=== PATIENT | female | born 1990 | race Caucasian/White ===

== ENCOUNTER 2020-03-15 07:06 | Outpatient (NON) | payer OTHER, SELFPAY ==
[2020-03-16 01:31] LABS: SARS-CoV-2 RNA PCR Negative
== END 2020-03-15 07:07 ==
LOC: ANHCOVIDDT 07:06
PROVIDERS: PCP Nurse Practitioner Family; Visit Provider Nurse Practitioner Family
DX: Z20.828 Contact with and (suspected) exposure to other viral communicable diseases (principal); R05 Cough; R52 Pain, unspecified
CPT/HCPCS: 87635; C9803; U0003

== ENCOUNTER 2020-04-25 12:35 | Emergency (ER) | payer OTHER, SELFPAY ==
[2020-04-25 12:49] VITALS: BP 156/64; PULSE 91; RESP 20; TEMP 36.9; O2SAT 98
--- NOTE | 2020-04-25 13:13 | ED.EXTPRO ---
HPI - Extremity Problem General Chief complaint: Extremity Problem,Nontraumatic Stated complaint: puffiness on left arm Source: patient Mode of arrival: ambulatory Limitations: no limitations History of Present Illness HPI Narrative: Patient is a 29-year-old female who presents complaining of left forearm pain. Patient reports having tattoo on Wednesday. Reports increased redness and warmth x2 days. Reports increased pain today. Denies taking [id number] medications for pain. MD Complaint: extremity pain Related Data Allergies Allergy/AdvReac Type Severity Reaction Status Date / Time carbamazepine Allergy Unknown Verified 11/23/16 10:39 Review of Systems Review of Systems: Narrative: CONSTITUTIONAL: Denies fever, chills, or sweats. EYES: Denies visual changes, redness, or discharge. ENT: Denies rhinorrhea, congestion, sore throat, or otalgia. CARDIOVASCULAR: Denies chest pain, palpitations, or edema. RESPIRATORY: Denies cough or dyspnea. GASTROINTESTINAL: Denies abdominal pain, nausea, vomiting, or diarrhea. GENITOURINARY: Denies dysuria or hematuria. SKIN: Warmth, redness and pain to left forearm MUSCULOSKELETAL: Denies back pain, joint pain, or myalgia. NEUROLOGIC: Denies headache, numbness, dizziness, or weakness. PSYCHIATRIC: Denies anxiety or depression. PMFSH Past Medical History Medical History Collar bone fracture Depression Retained placenta Surgical History Surgical History No significant past surgical history Family History Family History Other No significant family history Social History Social History Smoking status: Current every day smoker Alcohol intake: current Alcohol use details: socially Substance use: never Gender identity (if verbalized by the patient): Female Exam Narrative: Exam Narrative: GENERAL: Well-appearing, well-nourished, and in no acute distress. HEAD: Normocephalic, atraumatic. EYES: No redness or drainage. ENT: Mucous membranes pink and moist. CHEST: No respiratory distress. EXTREMITIES: Normal range of motion. No edema. SKIN: Erythema, warmth and mild edema to left forearm. NEURO: No focal deficits. Alert and oriented x3. Gait steady. PSYCH: Normal affect. No signs of depression or anxiety. Course Vital Signs Vital signs: Vital Signs Temperature 36.9 C 04/25/20 12:49 Pulse Rate 91 04/25/20 12:49 Respiratory Rate 20 04/25/20 12:49 Blood Pressure 156/64 H 04/25/20 12:49 Pulse Oximetry 98 04/25/20 12:49 Temperature 36.9 C 04/25/20 12:49 Pulse Rate 91 04/25/20 12:49 Respiratory Rate 04/25/20 12:49 Blood Pressure 156/64 H 04/25/20 12:49 Pulse Oximetry 98 04/25/20 12:49 Reviewed. Patient has been instructed to follow-up with her PCP regarding her blood pressure. MDM - Extremity (Nontraumatic) MDM Narrative Medical decision making narrative: Patient appears to have cellulitis to left forearm where tattoo was recently placed. Discussed with patient starting antibiotics at this time. And further signs and symptoms to look for. Patient is stable for discharge to home with outpatient follow-up as needed. Differential Diagnosis Differential diagnosis: Likely cellulitis, superficial thrombophlebitis and deep venous thrombosis of upper extremity Medical Records Attestation: I reviewed the patient's medical records. Critical Care Time Critical Care Time Critical Care Time: No Discharge Plan Discharge Clinical Impression: Cellulitis Qualifiers: Site of cellulitis: extremity Site of cellulitis of extremity: upper extremity Laterality: left Qualified Code(s): L03.114 - Cellulitis of left upper limb Patient Disposition: Home, Self-Care Condition: Stable Instructions: Antibiotic F
== END 2020-04-25 13:16 | disposition home or self-care (01) ==
PROVIDERS: Emergency Provider Nurse Practitioner; PCP Nurse Practitioner Family
DX: L03.114 Cellulitis of left upper limb (principal); F17.210 Nicotine dependence, cigarettes, uncomplicated
CPT/HCPCS: 99213; G0463

== ENCOUNTER 2020-06-05 10:30 | Outpatient (CLI) | payer OTHER, SELFPAY ==
[2020-06-05 11:12] LABS: Beta HCG Quantitative < 2.39 mIU/ML
== END 2020-06-05 10:31 | disposition home or self-care (01) ==
PROVIDERS: PCP Nurse Practitioner Family; Visit Provider Nurse Practitioner Obstetrics & Gynecology
DX: Z30.9 Encounter for contraceptive management, unspecified (principal)
CPT/HCPCS: 36415; 84702

== ENCOUNTER 2023-02-23 12:38 | Emergency (ER) | payer OTHER, SELFPAY ==
--- NOTE | ~2023-02-23 | CT_ITS ---
EXAMINATION: CT lumbar spine wo con DATE: 02/23/2023 13:45 INDICATION: Low back pain. TECHNIQUE: Computed tomography (CT) of the lumbar spine was performed without intravenous contrast. T he dose Willie The dose-length product was 1471.55 mGy-cm. COMPARISON: None FINDINGS: Minimal thoracolumbar dextrocurvature. Vertebral body heights are normal. No fractures. Small Schmorl 's node with surrounding sclerotic endplate changes along the inferior endplate of L5. There is mild disc height loss at L3-L4 and L5-S1. 3 mm nonobstructing stone at a lower pole calyx of the right kid justa. T-shaped IUD in expected position. Small amount of likely physiologic free fluid in the cul-de-s ac. Visualized paravertebral soft tissues are unremarkable. The following disc levels are specificall y discussed: T11-T12: The disc does not extend beyond the endplate margin. There is mild bilateral facet joint ost eoarthritis. There is no neural foraminal stenosis. There is no central canal stenosis. T12-L1: The disc does not extend beyond the endplate margin. There is mild bilateral facet joint oste oarthritis. There is no neural foraminal stenosis. There is no central canal stenosis. L1-L2: The disc does not extend beyond the endplate margin. There is mild bilateral facet joint osteo arthritis. There is no neural foraminal stenosis. There is no central canal stenosis. L2-L3: Disc is mildly bulging. There is bilateral facet joint osteoarthritis. There is no neural fora michelle stenosis. There is minimal central canal stenosis. L3-L4: Disc is bulging. There is mild bilateral facet joint osteoarthritis. There is mild right and m inimal left neural foraminal stenosis. There is mild central canal stenosis. L4-L5: Disc is bulging. There is mild left and and mild to moderate right facet joint osteoarthritis. There is mild bilateral neural foraminal stenosis. There is mild central canal stenosis. L5-S1: Disc is bulging. There is mild bilateral facet joint osteoarthritis. There is mild bilateral n eural foraminal stenosis. There is no central canal stenosis. IMPRESSION: 1. Mild lumbar spondylosis. 2. 3 mm nonobstructing right renal stone. 3. IUD in expected position. Reviewed, dictated and finalized at location A.
[2023-02-23 12:58] VITALS: PULSE 129; RESP 16; TEMP 36.5; O2SAT 99
[2023-02-23] MEDS: KETOROLAC 30 MG/ML VIAL (*BKC) IM (13:04)
--- NOTE | 2023-02-23 13:16 | ED.GENADULT ---
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 The following day she had increased pain and went to an OSH ED where they gave her Toradol and Flexeril. She continue to have pain and went to her PCP who started her on Nroco and Prednisone, she states that her pain has started to improve and then yesterday pain started to get much worse. She states that the pain is now bilateral lower back and midline No cervical/thoracic spinal tenderness wtih palpation Lumbar spinal tenderness with palpation and bilateral asepcts No saddle paraesthesia No loss of bowel or bladder Related Data Allergies Allergy/AdvReac Type Severity Reaction Status Date / Time carbamazepine Allergy Unknown Unknown Verified 02/19/23 08:22 Review of Systems Review of Systems: CONSTITUTIONAL: Denies fever, chills, or sweats. EYES: Denies visual changes, redness, or discharge. ENT: Denies rhinorrhea, congestion, sore throat, or otalgia. CARDIOVASCULAR: Denies chest pain, palpitations, or edema. RESPIRATORY: Denies cough or dyspnea. GASTROINTESTINAL: Denies abdominal pain, nausea, vomiting, or diarrhea. GENITOURINARY: Denies dysuria or hematuria. SKIN: Denies rash or itching. MUSCULOSKELETAL: Reports severe back pain midline and bilateral, NEUROLOGIC: Denies headache, numbness, dizziness, or weakness. PSYCHIATRIC: Denies anxiety or depression. [facility] Past Medical History Medical History Chronic low back pain Collar bone fracture COVID-19 Depression Lipoma of back Retained placenta URI (upper respiratory infection) Vitamin B12 deficiency Vitamin D deficiency Surgical History Surgical History History of dilatation and curettage 2010 No significant past surgical history Family History Family History Other No significant family history Social History Social History Smoking packs per day: 0.5 Smoking cigarettes per day: 10.0 Years smoked: 15 Smoking pack-years: 7.50 Smoking status: Current every day smoker Tobacco type: cigarettes Alcohol intake: never Substance use: never Substance use type: does not use Lack of Transportation: No Lack of Food: Never True Current Housing: I Have Housing Concerned About Future Housing: No Difficulty Paying Gas/Electric Bills: No Difficulty Paying for Meds: No Currently Unemployed: No Education: Trade/Vocational Certificate Difficulty w/ Childcare or Family Care: No Living arrangements: with family Occupation/Education: occupation Gender identity (if verbalized by the patient): Female Sexual Orientation (if Verbalized by the Patient): Straight or Heterosexual Exam Narrative: GENERAL: Well-appearing, well-nourished, and in no acute distress. HEAD: Normocephalic, atraumatic. EYES: PERRLA and EOMI. ENT: Nares clear, no rhinorrhea or epistaxis. Mucous membranes moist. Oropharynx without tonsillar hypertrophy exudate or other lesions. Bilateral TMs pearly [place] nonbulging NECK: Supple. No adenopathy or masses. No carotid bruits or JVD CHEST: Clear to auscultation. No respiratory distress. No wheezes rales or rhonchi HEART: Regular rate and rhythm. No murmur heard. Normal peripheral pulses. ABDOMEN: Soft, nontender, nondistended, normal active bowel sounds. EXTREMITIES: Normal range of motion. No edema. SKIN: Warm, dry, no rash. NEURO: No focal deficits. Alert and oriented x3. PSYCH: Normal mood and affect. Course Vital Signs Vital signs:
[2023-02-23 13:25] LABS: Appearance Urine Clear (Clear); Bilirubin Urine Negative (Negative); Blood Urine Negative (Negative); Color Urine Yellow (Yellow); Glucose Urine UA Negative (Negative); Ketones Urine Negative (Negative); Leukocyte Esterase Ur Negative LEU/UL (Negative); Nitrate Urine Negative (Negative); Protein Urine Negative (Negative); Specific Grav Ur 1.013 (1.001-1.035); Urobilinogen Urine 0.2 mg/dL (<2.0); pH Urine 7.5 (5.0-9.0)
[2023-02-23 13:46] LABS: Add Urine Microscopic? NO
[2023-02-23] MEDS: LIDOCAINE 5% PATCH 1 PATCH TRANSDERM (14:54)
[2023-02-23] MEDS: diazePAM (*CRX) 5 MG TABLET PO (14:54)
[2023-02-23] MEDS: HYDROcodone/acetaminophen (*CRX) 5-325 MG TABLET 1 TAB PO (14:54)
[2023-02-23 16:33] VITALS: BP 131/72; PULSE 72; RESP 18; O2SAT 97
== END 2023-02-23 17:10 | disposition home or self-care (01) ==
PROVIDERS: Emergency Provider Nurse Practitioner Family; PCP Family Medicine
DX: M54.50 Low back pain, unspecified (principal); E53.8 Deficiency of other specified B group vitamins; E55.9 Vitamin D deficiency, unspecified; F32.A Depression, unspecified; F17.210 Nicotine dependence, cigarettes, uncomplicated; Z97.5 Presence of (intrauterine) contraceptive device; Z86.16 Personal history of COVID-19; N20.0 Calculus of kidney; M47.816 Spondylosis without myelopathy or radiculopathy, lumbar region
CPT/HCPCS: 72131; 81003; 81025; 96372; 99284; A9270; J1885

== ENCOUNTER → 2023-03-10 11:15 | Outpatient (CLI) | payer OTHER, SELFPAY ==
--- NOTE | ~2023-03-10 | MR_ITS ---
EXAMINATION: MR lumbar spine wo con DATE: 03/10/2023 11:54 INDICATION: Low back pain with radiculopathy. TECHNIQUE: Magnetic resonance imaging (MRI) of the lumbar spine was performed without intravenous con trast. Sequences included sagittal T2-weighted FSE, sagittal T2-weighted FS FSE, sagittal T1-weighted FSE, and axial T2-weighted FSE. COMPARISON: CT lumbar spine 02/23/2023 FINDINGS: Bone alignment is normal. Vertebral body heights are normal. There is mildly decreased disc height at L2-L3 and L5-S1. The distal spinal cord signal intensity is normal. The conus medullaris i s at L1. The following disc levels are specifically discussed: L1-L2: The disc does not extend beyond the endplate margin. There is mild left facet joint osteoarthr itis. There is no neural foraminal stenosis. There is no central canal stenosis. L2-L3: The disc does not extend beyond the endplate margin. There is mild bilateral facet joint osteo arthritis. There is no neural foraminal stenosis. There is no central canal stenosis. L3-L4: The disc is bulging and has an annular fissure. There is mild bilateral facet joint osteoarthr itis. There is mild left neural foraminal stenosis. There is no central canal stenosis. L4-L5: The disc is bulging. There is moderate severe left facet joint osteoarthritis. There is mild b ilateral neural foraminal stenosis. There is mild central canal stenosis. L5-S1: The disc is bulging and has an annular fissure. There is mild bilateral facet joint osteoarthr itis. There is mild bilateral neural foraminal stenosis. There is mild central canal stenosis. IMPRESSION: 1. Mild spondylosis. Reviewed, dictated and finalized at location E. IMPRESSION: 1. Mild spondylosis.
== END ==
PROVIDERS: PCP Physician Assistant Medical; Visit Provider Physician Assistant Medical
DX: M43.06 Spondylolysis, lumbar region (principal); M47.817 Spondylosis without myelopathy or radiculopathy, lumbosacral region
CPT/HCPCS: 72148

== ENCOUNTER 2023-05-31 10:30 | Outpatient (RCR) | payer OTHER, SELFPAY ==
--- NOTE | 2023-03-03 16:37 | PTOPEVAL1 ---
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 By the time got in the care to go home her pain had worsened, went straight to the E.R. Was getting better on Prednisone and a couple days after completion pain greatly increased and went to E.R. per primary physician and got CT. Was given a Toradol shot and a new prescription for flexeril and lidocaine patches. Was able to file worker's compensation with hospital. Reported Pain Level Pain Score 8: Self Report Additional Pain Score Comments On Prednisone would go down to 4/10 Assessment PT Clinical Summary Pt presents with significant back pain she reports after work related injury while lifting a patient . She has had two rounds of prednisone which seemed to help but pain returned. She has had a CT scan and is scheduled for an MRI. CT scan shows multiple levels of stenosis, bulging discs, and facet issues. Pt has severely reduced lumbar ROM, multiple areas of tenderness and tone, significant difficulty with gait and mobility, and abnormal standing alignment. Pt will greatly benefit from physical therapy in order to address deficits and return to PLOF. Plan of Care Interventions Aquatic Therapy,Electrical Stimulation,Gait Training,Hot Pack/Cold Pack,Manual Therapy, Mechanical Traction,Neuro Re-education,Therapeutic Activities,Therapeutic Exercise,Ultrasound PT Services Indicated Yes Treatment Frequency and 1-2x weekly x 8 weeks Duration These treatments will address the objective and functional deficits as defined above. The patient will be advanced safely and appropriately in order for the patient to progress towards his/her prior level of function. Additional exercises will be introduced and as well as a comprehensive home exercise program upon discharge, if needed, ?to ensure carryover of functional gains achieved in the clinic. This treatment plan has been reviewed and agreement upon by the patient.
--- NOTE | 2023-03-03 16:38 | OPREHPOC ---
Outpatient Therapy Plan of Care This is a Multidisciplinary Plan of Care that may contain components documented by all disciplines (PT, OT, and ST.) PT Goal 1 Goal Pt will be independent in HEP Pt will verbalize understanding of diagnosis and prognosis Target Visit 8 PT Problem 2 PT Problem #2 Pain PT Goal 1 Goal Pt will report greatest pain level at 5/10 or less to improve ADLs Target Visit 16 PT Goal 2 Goal Pt will report resolution of pain to return to PLOF Target Visit 24 PT Problem 3 PT Problem #3 Impaired Range of Motion PT Goal 1 Goal Pt will demo lumbar AROM of 50% in all tested planes Target Visit 10 PT Goal 2 Goal Pt will demo full AROM in all tested planes Target Visit 20 PT Problem 4 PT Problem #4 Impaired Functional Mobil PT Goal 1 Goal Pt will demo ability to perform log rolling onto/ off of mat table without assist Target Visit 10 PT Goal 2 Goal Pt will demo normalized mobility with minimal to nor guarding Target Visit 24
--- NOTE | 2023-04-02 11:31 | PTOPPROG ---
Assessment and note entered by Iva Dixon, PT Assessment Status Progress Report Diagnosis Strain/sprain lumbar tissues Therapy conditions lumbosacral pain with radiculopathy Subjective Information Been taking prescribed meloxicam. Has had some minimal improvement in pain with this. Has her back brace but caused increased pain with wearing it. 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 Has a sit to stand desk and is able to walk around often. 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 Still cannot lay in bed, sleeping in a recliner. Pain javed legs and buttock are slightly worse Assessment PT Clinical Summary Pt has been attending therapy consistently for her low back pain and radicular symptoms. Pt reports feeling 15-20% improved as she is better able to walk but her pain continues to be severe and limiting in her activities. Sacral and pelvic stabilization today demo's immediate and significant relief and pt shows possible leg length discrepancy. She continues to be unable to sleep in her bed. Has returned to one of her employment positions which has no lifting, allows change in position as needed with a sit<>stand desk. 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 She will be initiating aquatic therapy next week to attempt strengthening and pain reduction in a decreased weight bearing environment. Pt will benefit from cont therapy to attempt to improve deficits and pain. If no improvement by next progress report, will likely suggest return to provider for referral to more aggressive intervention. Plan of Care Interventions Aquatic Therapy,Electrical Stimulation,Gait Training,Hot Pack/Cold Pack,Manual Therapy, Mechanical Traction,Neuro Re-education,Therapeutic Activities,Therapeutic Exercise,Ultrasound PT Services Indicated Yes Treatment Frequency and 1-2x weekly x 4 weeks Duration These treatments will address the objective and functional deficits as defined above. The patient will be advanced safely and appropriately in order for the patient to progress towards his/her prior level of function. Additional exercises will be introduced and as well as a comprehensive home exercise program upo
--- NOTE | 2023-04-20 11:59 | PCPTNOTE ---
pt rescheduled todays appt for tomorrow.
--- NOTE | 2023-05-13 16:13 | PTOPPROG ---
Assessment and note entered by Iva Dixon, PT Assessment Status Reevaluation Diagnosis Strain/sprain lumbar tissues, pain in lumbar spine, Oth. Abnormalities of gait and mobility Subjective Information Pt reports is now able to sleep in bed. States is extremely sore when gets up but after gets moving this gets better. Is no longer taking Meloxicam, is done with this prescription. Takes Ibuprofen 800-1000mg, some days this is all she has to take. Some days will take tylenol. Is still achy but no anywhere what it was Is still having pain into the legs and cramps in left calf randomly. Hasn't returned ot [employer]PER[employer] work, but 40 hour work week with a sit<>stand desk and this is going ok Self-perceived improvement 70-75% overall. Still has difficulty bending at the waist and lifting anything. Twisting is also problematic Still uses the lumbosacral orthosis and tihs is helpful Does report lower pain levels for longer periods Assessment PT Clinical Summary Pt presents for reevaluation after aquatic therapy . Presentation shows phenomenal progress in her mobility and ability to tolerate changes in position as well as testing procedures today. While she still has pain that increases to severe levels, she reports she has more time at lower pain levels than previously. She is now able to sleep in her own bed as well which she had been sleeping in her recliner due to pain. 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 Today she reports feeling 70-75% better overall but continues to demo multiple areas of deficit including lumbar ROM, core and lumbopelvic stability, possible pelvic and sacral obliquities, multiple areas of tone and tenderness through the lumbar and gluteals. Pt will benefit from continued therapy to progress from aquatic to land based therapies while still addressing lumbar decompression, increasing strength and stability, as well as alignment in order to improve pain and return to her normal function with minimal pain. Plan of Care Interventions Aquatic Therapy,Electrical Stimulation,Gait Training,Hot Pack/Cold Pack,Manual Therapy, [facility]
--- NOTE | 2023-05-13 16:15 | OPREHPOC ---
Outpatient Therapy Plan of Care This is a Multidisciplinary Plan of Care that may contain components documented by all disciplines (PT, OT, and ST.) PT Goal 1 Goal Pt will be independent in HEP Pt will verbalize understanding of diagnosis and prognosis Target Visit 8 Progress Met PT Problem 2 PT Problem #2 Pain PT Goal 1 Goal Pt will report greatest pain level at 5/10 or less to improve ADLs Target Visit 16 Progress Partially Met Comment Pt reports increased time with lower intensity pain though will still have moments of 10/10 pain PT Goal 2 Goal Pt will report resolution of pain to return to PLOF Target Visit 24 PT Problem 3 PT Problem #3 Impaired Range of Motion PT Goal 1 Goal Pt will demo lumbar AROM of 50% in all tested planes Target Visit 10 Progress Partially Met Comment Pt demo's improved lumbar flexion with TRAM activation today PT Goal 2 Goal Pt will demo full AROM in all tested planes Target Visit 20 Progress Not Met PT Problem 4 PT Problem #4 Impaired Functional Mobil PT Goal 1 Goal Pt will demo ability to perform log rolling onto/ off of mat table without assist Target Visit 10 Progress Met PT Goal 2 Goal Pt will demo normalized mobility with minimal to nor guarding Target Visit 24 Progress Partially Met Comment Pt demo's appropriate gait today without guarding
--- NOTE | 2023-05-25 15:20 | PCPTNOTE ---
Pt no showed visit today.
--- NOTE | 2023-05-27 13:20 | PCPTNOTE ---
Pt NS visit again today. Called and left a message with reminders of her next 2 visits coming up.
--- NOTE | 2023-06-02 15:49 | PCPTNOTE ---
This treatment is being continued on visit number [id number]. Please see documentation on both accounts to view progress. Completed interventions, outcomes, and problems have been marked as Inactive to facilitate the copying of the Care plan routine for recurring accounts.
== END 2023-06-01 23:59 | disposition home or self-care (01) ==
LOC: ANHPT 10:30
PROVIDERS: PCP Family Medicine; Visit Provider Physician Assistant Medical
DX: S39.012D Strain of muscle, fascia and tendon of lower back, subsequent encounter (principal)
CPT/HCPCS: 97014; 97110; 97113; 97140; 97161; 97162; 97530; 97750; G0283

== ENCOUNTER 2023-06-11 09:23 | Outpatient (RCR) | payer OTHER, SELFPAY ==
--- NOTE | 2023-06-02 15:48 | PCPTNOTE ---
The treatment documented on this account is a continuation of the treatment documented on visit number [id number]. Please see documentation on both accounts to view progress. The Plan of Care has been transitioned and updated within the new V#. I have addressed and agree with the discipline specific Problems, Interventions, and Goals for the current certification period. Completed interventions, outcomes, and problems have been marked as Inactive to facilitate the copying of the Care plan routine for recurring accounts.
--- NOTE | 2023-06-11 16:53 | PTOPPROG ---
Assessment and note entered by Iva Dixon, PT Assessment Status Progress Diagnosis Strain/sprain lumbar tissues pain in lumbar spine, oth. abnormalities of gait and mobility Subjective Information Pt reports is still accurate from last session. States had a nerve block done by Dr. Thomas 06/07/23 and this went terrible . Was painful during procedure, and when would go to bend forward would have sharp stabbing pain in back. Had dry needling done at last therapy appointment. Was sore with this but after that subsided didn't really see any difference Pt reports was able to bend slightly better with knowledge after last appointment about abdominal bracing Is still using her low back brace especially at work with her sit<>stand desk, has not returned to [employer] work Reports issued a week of therapy and could tell had missed therapy. Reports intense 9/10 is less often, mostly with first waking. 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 She reports she missed a couple treatments at the beginning of this last round due to family emergency and noted increased pain without therapy. She does demo increased LE strength with resistance testing today as well as improvement in symptoms with lumbar traction. She has also been able to initiate dry needling with PT facility. Pt has yet to meet her goals, ad could continue to benefit from therapy to improve deficits so as to return her to her PLOF. Plan of Care Interventions Aquatic Therapy,Electrical Stimulation,Gait Training,Hot Pack/Cold Pack,Manual Therapy, Mechanical Traction,Neuro Re-education,Patient/ Caregiver Educati,Therapeutic Activities, Therapeutic Exercise,Self-Care/Home Management, Ultrasound Other Interventions dry needling PT Services Indicated Yes Treatment Frequency and 1-2x weekly x 10 visits Duration These treatments will address the objective and functional deficits as defined above. The patient will be advanced safely and appropriately in order for the patient to progress towards his/her prior level of function. Additional exercises will be introduced and as well as a comprehensive home exercise program upon discharge, if needed, ?to ensure carryover of functional gains achieved in
--- NOTE | 2023-08-13 09:20 | PCPTNOTE ---
Admitting Provider: Attending Provider: Cindy Verma PA-C Patient:Domonique Benton Date of :1990 Patient has not returned for any further treatments since 06/11/2023, therefore she will be discharged at this time. 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 The goals have been partially met. Thank you for referring this patient to [facility]. Please review, sign, date and return this discharge summary STEFANIE. I have been updated about the patient's current status and I agree with discharge from the above service at this time. Referring Physician Date
== END 2023-08-13 11:55 | disposition home or self-care (01) ==
LOC: ANHHIPT 09:23
PROVIDERS: PCP Physician Assistant Medical; Visit Provider Physician Assistant Medical
DX: S39.012D Strain of muscle, fascia and tendon of lower back, subsequent encounter (principal)
CPT/HCPCS: 97110; 97113; 97750

== ENCOUNTER 2023-06-29 07:52 | Day surgery (SDC) | payer OTHER, SELFPAY ==
[2023-06-18 10:31] VITALS: BMI 45.2
--- NOTE | ~2023-06-29 | XR_ITS ---
EXAMINATION: XR fluoroscopy no charge INDICATION: Bilateral sacroiliac joint injection TECHNIQUE: 22 intraoperative fluoroscopic images are submitted for review. Total fluoroscopic time wa s 14.6 seconds. COMPARISON: None available FINDINGS: Fluoroscopic images demonstrate needles in the bilateral sacroiliac joints. Please refer to procedure note for full details. IMPRESSION: 1. Please refer to procedure note for full details. Reviewed, dictated and finalized at location L. 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
--- NOTE | 2023-06-29 06:29 | WPDHPUPDATE1 ---
History and Physical Update Update Date/Time: 06/29/23 06:29 History and Physical has been reviewed, including an updated exam of the patient. There are NO changes in the patient's condition. Risks, benefits, and alternatives have been discussed and questions answered. Patient agrees to proceed with procedure.
--- NOTE | 2023-06-29 06:31 | W.PM.PROC2 ---
Procedure Note - Detailed Date of Procedure 06/29/23 Pre-op Diagnosis Sacroiliitis, chronic low back pain Post-op Diagnosis Same Procedure Performed bilateral intra-articular sacroiliac joint steroid injections under fluoroscopic guidance with contrast control. Surgeon Willy Thomas MD Anesthesia Local Description of Procedure INFORMED CONSENT: Risks, benefits and alternatives to the procedure were discussed in detail with the patient who expressed explicit understanding and consent to proceed. Patient was informed verbally and in written form regarding the risks associated with the procedure including the low risk of serious infection, bleeding/bruising, allergic reaction, nerve or organ injury, paralysis, procedural site pain or discomfort, worsening pain and/or mobility, failure to treat and/or disfigurement. The patient expressed explicit understanding and consent to proceed. All materials required for the procedure were available prior to procedure start. Site and side were marked prior to procedure and confirmed in the presence of the patient. PROCEDURE IN DETAIL: The patient was brought to the procedural suite and placed in the prone position. Patient was made comfortable with use of pillows under the head/chest, hips and ankles. Skin overlying the injection site on the affected side(s) was prepared broadly with ChloraPrep applicator and draped in a sterile manner. Aseptic technique was used throughout. The SI joint was identified in the AP view and contralateral oblique angulation with caudal tilt was utilized to optimize visualization of the inferior and medial joint line representing the posterior portion of the joint. Local anesthesia was established by infiltration with approximately 5 mL of 2% lidocaine via a 1-1/2 inch 27-gauge needle. A 22-gauge 3.5 inch Quincke spinal needle was advanced until the needle entered the inferior third of the joint space approximately 1cm cephalad from its most inferior point. In the AP view, 0.5 mL of Omnipaque 300 contrast medium was injected after negative aspiration for CSF, blood or other bodily fluid, showing appropriate intra-articular spread of contrast without evidence of intravascular, perineural or intrathecal placement. A 1.0 mL solution containing 3 mg of betamethasone in 0.5% PF bupivacaine was injected into the right SI joint after repeat negative aspiration. Appropriate spread of the injectate was confirmed with washout of previous injected contrast. No parasthesias were elicited. Needle was removed completely intact without difficulty. The same exact procedure was repeated for all remaining levels on the contralateral side, left SI joint, modified as necessary to accommodate for the new target location with identical findings/results and no evidence of complication. Images were saved and documented in the patient chart. Patient's skin was cleansed and sterile bandage applied. The patient tolerated the procedure well. The patient was transported to the recovery area in stable condition where they were observed for an appropriate amount of time prior to discharge, without evidence of complication. The patient was instructed to avoid excessive activity for the next 48 hours, including climbing and frequent use of stairs. Showers only for 48 hours. They were instructed not to drive or operate heavy machinery for 24 hours. They are to monitor for severe headaches, fevers, chills, night sweats, erythema/swelling at the site or any other signs of infection, bleeding/bruising, bowel or bladder changes as well as new pain, weakness or numbness in the upper or lower extremity. Should they notice these changes, they are instructed to call our office immediately or report directly to the nearest Emergency Department if no answer or if after posted office hours. COMPLICATIONS: None COMMENTS: None CONTRAST WASTED: 29mL Omnipaque 300. Complications No immediate complications Condition Stable
[2023-06-29 08:15] VITALS: BP 148/88; PULSE 85; RESP 20; TEMP 36.8; O2SAT 99
[2023-06-29 10:33] VITALS: BP 138/69; PULSE 66; RESP 25; O2SAT 99
[2023-06-29] MEDS: LIDOCAINE HCL 1% PF INJ 5 ML VIAL INFILTRATE (10:40)
[2023-06-29 10:43] VITALS: BP 141/73; PULSE 70; RESP 16; O2SAT 100
[2023-06-29] MEDS: BETAMETHASONE SODIUM PHOSPHATE PF INJ 6 MG/ML VIAL INFILTRATE (10:44)
[2023-06-29] MEDS: BUPivacaine HCL 0.5% 10 ML AMP INFILTRATE (10:44)
[2023-06-29 10:50] VITALS: BP 123/64; PULSE 67; RESP 20; O2SAT 100
== END 2023-06-29 11:20 | disposition home or self-care (01) ==
PROVIDERS: PCP Physician Assistant Medical; Visit Provider Anesthesiology Pain Medicine
PROC: (CPT 27096; principal; 2023-06-29 09:30)
DX: M46.1 Sacroiliitis, not elsewhere classified (principal); M54.59 Other low back pain
CPT/HCPCS: 27096; 99199; G0260

== ENCOUNTER 2023-07-27 07:37 | Day surgery (SDC) | payer OTHER, SELFPAY ==
[2023-07-16 09:32] VITALS: BMI 44.2
--- NOTE | ~2023-07-27 | XR_ITS ---
EXAMINATION: XR fluoroscopy no charge DATE: 07/27/2023 10:15 CDT INDICATION: LINDA L3,L4,L5,BK . TECHNIQUE: 10 fluoroscopic images and 2 cine clips of the lumbar spine were obtained during bilateral L3-L5 nerve block, performed by Willy Thomas MD. I was not present during the procedure. Fluoros copy exposure time was 22.5 seconds. Air Kerma 14.2 mGy. COMPARISON: None FINDINGS/IMPRESSION: Fluoroscopic documentation of bilateral L3-L5 nerve block. Please refer to the operative note for com plete procedural details. Reviewed, dictated and finalized at location K.
[2023-07-27 09:00] VITALS: BP 151/101; PULSE 87; RESP 14; TEMP 36.7; O2SAT 99
--- NOTE | 2023-07-27 09:40 | WPDHPUPDATE1 ---
History and Physical Update Update Date/Time: 07/27/23 09:40 History and Physical has been reviewed, including an updated exam of the patient. There are NO changes in the patient's condition. Risks, benefits, and alternatives have been discussed and questions answered. Patient agrees to proceed with procedure.
--- NOTE | 2023-07-27 09:41 | W.PM.PROC2 ---
Procedure Note - Detailed Date of Procedure 07/27/23 Pre-op Diagnosis Lumbosacral Spondylosis, Dorsalgia Post-op Diagnosis Same Procedure Performed bilateral L3, L4, L5 medial branch/ dorsal ramus nerve blocks (#1) addressing the bilateral L4-5, L5-S1 facet joints under fluoroscopic guidance with contrast control. Surgeon Willy Thomas MD Anesthesia Local Description of Procedure INFORMED CONSENT: Risks, benefits and alternatives to the procedure were discussed in detail with the patient who expressed explicit understanding and consent to proceed. Patient was informed verbally and in written form regarding the risks associated with the procedure including the low risk of serious infection, bleeding/bruising, allergic reaction, nerve or organ injury, paralysis, procedural site pain or discomfort, worsening pain and/or mobility, failure to treat and/or disfigurement. The patient expressed explicit understanding and consent to proceed. All materials required for the procedure were available prior to procedure start. Site and side were marked prior to procedure and confirmed in the presence of the patient. PROCEDURE IN DETAIL: The patient was brought to the procedural suite and placed in the prone position. Patient was made comfortable with use of pillows under the head/chest, hips and ankles. Skin overlying the injection site on the affected side(s) was prepared broadly with ChloraPrep applicator and draped in a sterile manner. Aseptic technique was used throughout. The endplates of the vertebral bodies at the site(s) of interest were aligned in the AP view. Ipsilateral oblique angulation was utilized to optimize visualization of the intersection between the superior articulating process and transverse process at each target site. Local anesthesia was established by infiltration with approximately 5 mL of 1% lidocaine via a 1-1/2 inch 27-gauge needle. A 25-gauge 5.0 inch Quincke spinal needle was advanced until the needle tip contacted periosteum at the target site, right L3. Lateral view was utilized to confirm the appropriate placement of the needle tip just anterior to the facet line and superior to the pedicle. In the Lateral view, 0.25 mL of Omnipaque 300 contrast medium was injected after negative aspiration for CSF, blood or other bodily fluid, showing appropriate extra-articular spread of contrast without evidence of intravascular, foraminal or intrathecal placement. A 0.5 mL solution of 0.5% PF bupivacaine was injected after negative repeat aspiration. Appropriate spread of the injectate was confirmed with washout of previously injected contrast. No parasthesias were elicited. Needle was removed completely intact without difficulty. The same exact procedure was repeated for all remaining levels on the ipsilateral side, right L4, L5 medial branches/dorsal ramus, modified as necessary to accommodate for the new target location with identical findings and results and no evidence of complication. The same exact procedure was repeated for all remaining levels on the contralateral side, left L3, L4, L5 medial branches/dorsal ramus, modified as necessary to accommodate for the new target location with identical findings and results and no evidence of complication. Images were saved and documented in the patient chart. Patient's skin was cleaned and sterile bandage applied. The patient tolerated the procedure well. The patient was transported to the recovery area in stable condition where they were observed for an appropriate amount of time prior to discharge, without evidence of complication. Patient was instructed on the appropriate completion of a pain diary over the next 12-24 hours. The patient was instructed to avoid excessive activity for the next 48 hours, including climbing and frequent use of stairs. Showers only for 48 hours. They were instructed not to drive or operate heavy machinery for 24 hours. They are to monitor for severe headaches, fevers
[2023-07-27 10:20] VITALS: BP 149/87; PULSE 79; RESP 16; O2SAT 97
[2023-07-27 10:30] VITALS: BP 137/78; PULSE 71; RESP 16; O2SAT 100
[2023-07-27] MEDS: LIDOCAINE HCL 1% PF INJ 5 ML VIAL INFILTRATE (10:31)
[2023-07-27] MEDS: BUPivacaine HCL 0.5% 10 ML AMP 5 ML INFILTRATE (10:31)
[2023-07-27 10:35] VITALS: BP 139/88; PULSE 77; RESP 16; O2SAT 100
== END 2023-07-27 10:55 | disposition home or self-care (01) ==
PROVIDERS: PCP Physician Assistant Medical; Visit Provider Anesthesiology Pain Medicine
PROC: (CPT 64493; principal; 2023-07-27 09:30)
DX: M47.817 Spondylosis without myelopathy or radiculopathy, lumbosacral region (principal); M54.89 Other dorsalgia
CPT/HCPCS: 64493; 64494; 99199

== ENCOUNTER 2023-09-07 09:24 | Day surgery (SDC) | payer OTHER, SELFPAY ==
[2023-08-25 14:07] VITALS: BMI 44.2
--- NOTE | ~2023-09-07 | XR_ITS ---
XR fluoroscopy no charge Indication: Bilateral L3, L4 and L5 medial branch nerve block TECHNIQUE: Fluoroscopy used during Bilateral L3, L4 and L5 medial branch nerve block performed by Dr Bean [Willy Thomas MD] on 09/07/2023. 21 seconds of fluoroscopy with 11 fluoroscopic images captured. FINDINGS: Correlate with procedure note. IMPRESSION: Fluoroscopy used during Bilateral L3, L4 and L5 medial branch nerve block. Reviewed, dictated and finalized at location B.
--- NOTE | 2023-09-07 09:55 | WPDHPUPDATE1 ---
History and Physical Update Update Date/Time: 09/07/23 09:55 History and Physical has been reviewed, including an updated exam of the patient. There are NO changes in the patient's condition. Risks, benefits, and alternatives have been discussed and questions answered. Patient agrees to proceed with procedure.
--- NOTE | 2023-09-07 09:56 | W.PM.PROC2 ---
Procedure Note - Detailed Date of Procedure 09/07/23 Pre-op Diagnosis Lumbosacral Spondylosis, Chronic Low Back Pain Post-op Diagnosis Same Procedure Performed Diagnostic bilateral Lumbar Medial Branch/Dorsal Ramus Blocks at L3, L4, L5 Treating the Ipsilateral L4-5, L5-S1 Facet Joints Under Fluoroscopic Guidance and with Contrast Control. ( 4 levels blocked). Surgeon Willy Thomas MD Anesthesia Local Description of Procedure INFORMED CONSENT: Risks, benefits and alternatives to the procedure were discussed in detail with the patient who expressed explicit understanding and consent to proceed. Patient was informed verbally and in written form regarding the risks associated with the procedure including the low risk of serious infection, bleeding/bruising, allergic reaction, nerve or organ injury, paralysis, procedural site pain or discomfort, worsening pain and/or mobility, failure to treat and/or disfigurement. The patient expressed explicit understanding and consent to proceed. All materials required for the procedure were available prior to procedure start. Site and side were marked prior to procedure and confirmed in the presence of the patient. PROCEDURE IN DETAIL: The patient was brought to the procedural suite and placed in the prone position. Patient was made comfortable with use of pillows under the head/chest, hips and ankles. Skin overlying the injection site on the affected side(s) was prepared broadly with ChloraPrep applicator and draped in a sterile manner. Aseptic technique was used throughout. The endplates of the vertebral bodies at the site(s) of interest were aligned in the AP view. Ipsilateral oblique angulation was utilized to optimize visualization of the intersection between the superior articulating process and transverse process at each target site. Local anesthesia was established by infiltration with approximately 5 mL of 1% lidocaine via a 1-1/2 inch 27-gauge needle. A 25-gauge 5.0 inch Quincke spinal needle was advanced until the needle tip contacted periosteum at the target site, right L3. Lateral view was utilized to confirm the appropriate placement of the needle tip just anterior to the facet line and superior to the pedicle. In the Lateral view, 0.25 mL of Omnipaque 300 contrast medium was injected after negative aspiration for CSF, blood or other bodily fluid, showing appropriate extra-articular spread of contrast without evidence of intravascular, foraminal or intrathecal placement. A 0.5 mL solution of 2.0% preservative-free lidocaine was injected after negative repeat aspiration. Appropriate spread of the injectate was confirmed with washout of previously injected contrast. No parasthesias were elicited. Needle was removed completely intact without difficulty. The same exact procedure was repeated for all remaining levels on the ipsilateral side, right L4, L5 medial branches/dorsal ramus, modified as necessary to accommodate for the new target location with identical findings and results and no evidence of complication. The same exact procedure was repeated for all remaining levels on the contralateral side, left L3, L4, L5 medial branches/dorsal ramus, modified as necessary to accommodate for the new target location with identical findings and results and no evidence of complication. Images were saved and documented in the patient chart. Patient's skin was cleaned and sterile bandage applied. The patient tolerated the procedure well. The patient was transported to the recovery area in stable condition where they were observed for an appropriate amount of time prior to discharge, without evidence of complication. Patient was instructed on the appropriate completion of a pain diary over the next 12-24 hours. The patient was instructed to avoid excessive activity for the next 48 hours, including climbing and frequent use of stairs. Showers only for 48 hours. They were instructed not to drive or operate heavy machinery for
[2023-09-07 10:06] VITALS: BP 146/97; PULSE 73; RESP 20; TEMP 36.8; O2SAT 100
[2023-09-07 10:25] VITALS: BP 132/74; PULSE 73; RESP 20; O2SAT 97
[2023-09-07] MEDS: LIDOCAINE HCL 2% PF INJ 5 ML VIAL INFILTRATE (10:34)
[2023-09-07 10:35] VITALS: BP 130/75; PULSE 70; RESP 12; O2SAT 98
[2023-09-07] MEDS: LIDOCAINE HCL 1% PF INJ 5 ML VIAL XX (10:40)
[2023-09-07 10:44] VITALS: BP 131/82; PULSE 73; RESP 16; O2SAT 100
== END 2023-09-07 10:57 | disposition home or self-care (01) ==
PROVIDERS: PCP Physician Assistant Medical; Visit Provider Anesthesiology Pain Medicine
PROC: (CPT 64493; principal; 2023-09-07 10:45)
DX: M47.817 Spondylosis without myelopathy or radiculopathy, lumbosacral region (principal); M54.59 Other low back pain
CPT/HCPCS: 64493; 64494; 99199

== ENCOUNTER 2023-10-26 06:58 | Day surgery (SDC) | payer OTHER, SELFPAY ==
--- NOTE | ~2023-10-26 | XR_ITS ---
EXAMINATION: XR fluoroscopy no charge DATE: 10/26/2023 8:35 CDT INDICATION: LINDA SI JT INJ . TECHNIQUE: 9 fluoroscopic images and 2 cine clips of the bilateral SI joints were obtained during linda ateral SI joint injection, performed by Willy Thomas MD. I was not present during the procedure. Fluoroscopy exposure time was 14.1 seconds. Air Kerma 10.13 mGy. COMPARISON: 06/29/2023 FINDINGS/IMPRESSION: Fluoroscopic documentation of bilateral SI joint injection. Please refer to the operative note for co mplete procedural details . Reviewed, dictated and finalized at location K.
[2023-10-26 07:43] VITALS: BMI 44.5
[2023-10-26 07:47] VITALS: BP 129/88; PULSE 74; RESP 16; TEMP 36.6; O2SAT 98
--- NOTE | 2023-10-26 08:25 | PM.HPGS ---
History of Present Illness History of Present Illness Consent: Risks, benefits, and alternatives have been discussed and questions answered. Patient agrees to proceed with procedure. Chief complaint: Sacroilitis Narrative: Domonique Benton is a 32 year old female with chronic, recalcitrant and disabling bilateral sacroiliac joint pain secondary to degenerative spondylosis /arthropathy with failure to respond to aggressive conservative measures including PT, oral and topical analgesics, opioid and nonopioid analgesics, rest, time and activity/behavioral modification over the past 1-2 years who presents for bilateral SI joint steroid injections under fluoroscopic guidance and with contrast control. Review of Systems Review of Systems: Patient denies any new infectious, allergic, cardiopulmonary, neurologic or constitutional symptoms or changes in activity tolerance or exercise capacity including new or progressive SOB/ORDOÑEZ, peripheral edema, productive cough, dysuria, nausea/vomiting, diarrhea, weight change, fevers/chills/night sweats, new or progressive neurologic deficit, cognitive or mood changes since last seen, except as documented in the HPI. All systems reviewed & are unremarkable except as noted in HPI and below Constitutional: Constitutional: Reports as per HPI [facility] Past Medical History Medical History Chronic low back pain Collar bone fracture COVID-19 Depression Lipoma of back Retained placenta URI (upper respiratory infection) Vitamin B12 deficiency Vitamin D deficiency Surgical History Surgical History History of dilatation and curettage 2010 No significant past surgical history Family History Family History Other No significant family history Social History Social History Years smoked: 15 Smoking status: Never smoker Tobacco type: cigarettes Second hand tobacco smoke exposure: No Alcohol intake: never Substance use: never Substance use type: does not use Lack of Transportation: No Lack of Food: Never True Current Housing: I Have Housing Concerned About Future Housing: No Difficulty Paying Gas/Electric Bills: No Difficulty Paying for Meds: No Currently Unemployed: No Education: Trade/Vocational Certificate Difficulty w/ Childcare or Family Care: No Living arrangements: with family Occupation/Education: occupation Gender identity (if verbalized by the patient): Female Sexual Orientation (if Verbalized by the Patient): Straight or Heterosexual Spiritual care concerns: No Meds Home Medications and Allergies Home Medications Medication Instructions Recorded Confirmed Type celecoxib 200 mg capsule 200 mg PO DAILY 08/25/23 10/26/23 History duloxetine 60 mg capsule,delayed 60 mg PO QHS 305 days #30 caps 10/07/23 10/26/23 Rx release phentermine 15 mg capsule 15 mg PO DAILY #30 caps 10/07/23 10/26/23 Rx topiramate 50 mg tablet (Topamax) 50 mg PO DAILY #30 tabs 10/07/23 10/26/23 Rx Allergies Allergy/AdvReac Type Severity Reaction Status Date / Time carbamazepine Allergy Intermediate Hives Verified 10/26/23 07:31 Vital Signs Vital Signs - 24 hr 10/26/23 07:47 Temperature 97.9 F Pulse Rate 74 Respiratory Rate 16 Blood Pressure 129/88 Pulse Oximetry 98 Oxygen Delivery Room Air Exam Narrative: The patient's physical exam is essentially unchanged from prior examination on 09/14/2023. Specifically, patient demonstrates normal lung capacity, tidal volume and respiratory rate without wheezes, crackles, rales or rubs. Heart rate and rhythm are regular without murmurs, gallops or rubs. No JVD. Pulses 2+ globally without increasing peripheral edema. AAOx3, NC/AT without acute distress or altered consciousnes
--- NOTE | 2023-10-26 08:27 | WPDHPUPDATE1 ---
History and Physical Update Update Date/Time: 10/26/23 08:27 History and Physical has been reviewed, including an updated exam of the patient. There are NO changes in the patient's condition. Risks, benefits, and alternatives have been discussed and questions answered. Patient agrees to proceed with procedure.
--- NOTE | 2023-10-26 08:28 | W.PM.PROC2 ---
Procedure Note - Detailed Date of Procedure 10/26/23 Pre-op Diagnosis Sacroilitis, chronic low back pain Post-op Diagnosis Same Procedure Performed bilateral Sacroiliac Joint Steroid Injection under Fluoroscopic Guidance and with Contrast Control. Surgeon Willy Thomas MD Anesthesia Local Description of Procedure INFORMED CONSENT: Risks, benefits and alternatives to the procedure were discussed in detail with the patient who expressed explicit understanding and consent to proceed. Patient was informed verbally and in written form regarding the risks associated with the procedure including the low risk of serious infection, bleeding/bruising, allergic reaction, nerve or organ injury, paralysis, procedural site pain or discomfort, worsening pain and/or mobility, failure to treat and/or disfigurement. The patient expressed explicit understanding and consent to proceed. All materials required for the procedure were available prior to procedure start. Site and side were marked prior to procedure and confirmed in the presence of the patient. PROCEDURE IN DETAIL: The patient was brought to the procedural suite and placed in the prone position. Patient was made comfortable with use of pillows under the head/chest, hips and ankles. Skin overlying the injection site on the affected side(s) was prepared broadly with ChloraPrep applicator and draped in a sterile manner. Aseptic technique was used throughout. The SI joint was identified in the AP view and contralateral oblique angulation with caudal tilt was utilized to optimize visualization of the inferior and medial joint line representing the posterior portion of the joint. Local anesthesia was established by infiltration with approximately 5 mL of 2% lidocaine via a 1-1/2 inch 27-gauge needle. A 22-gauge 3.5 inch Quincke spinal needle was advanced until the needle entered the inferior third of the joint space approximately 1cm cephalad from its most inferior point. In the AP view, 0.5 mL of Omnipaque 300 contrast medium was injected after negative aspiration for CSF, blood or other bodily fluid, showing appropriate intra-articular spread of contrast without evidence of intravascular, perineural or intrathecal placement. A 1.5 mL solution containing 6 mg of betamethasone in 0.5% PF bupivacaine was injected after repeat negative aspiration. Appropriate spread of the injectate was confirmed with washout of previous injected contrast. No parasthesias were elicited. Needle was removed completely intact without difficulty. The same exact procedure was repeated for all remaining levels on the contralateral side, left SI joint, modified as necessary to accommodate for the new target location with identical findings/results and no evidence of complication. Images were saved and documented in the patient chart. Patient's skin was cleansed and sterile bandage applied. The patient tolerated the procedure well. The patient was transported to the recovery area in stable condition where they were observed for an appropriate amount of time prior to discharge, without evidence of complication. The patient was instructed to avoid excessive activity for the next 48 hours, including climbing and frequent use of stairs. Showers only for 48 hours. They were instructed not to drive or operate heavy machinery for 24 hours. They are to monitor for severe headaches, fevers, chills, night sweats, erythema/swelling at the site or any other signs of infection, bleeding/bruising, bowel or bladder changes as well as new pain, weakness or numbness in the upper or lower extremity. Should they notice these changes, they are instructed to call our office immediately or report directly to the nearest Emergency Department if no answer or if after posted office hours. COMPLICATIONS: None COMMENTS: None CONTRAST WASTED: 29mL Omnipaque 300. Complications No immediate complications Condition Stable Disposition Same day [facility]
[2023-10-26 08:38] VITALS: BP 128/74; PULSE 68; RESP 18; O2SAT 98
[2023-10-26 08:43] VITALS: BP 134/80; PULSE 68; RESP 18; O2SAT 99
[2023-10-26] MEDS: BETAMETHASONE SODIUM PHOSPHATE PF INJ 6 MG/ML VIAL 12 MG INFILTRATE (08:44)
[2023-10-26] MEDS: BUPivacaine HCL 0.5% 10 ML AMP INFILTRATE (08:45)
[2023-10-26 08:50] VITALS: BP 124/69; PULSE 74; RESP 16; O2SAT 98
== END 2023-10-26 09:03 | disposition home or self-care (01) ==
PROVIDERS: PCP Physician Assistant Medical; Visit Provider Anesthesiology Pain Medicine
PROC: (CPT 27096; principal; 2023-10-26 08:15)
DX: M46.1 Sacroiliitis, not elsewhere classified (principal); M54.59 Other low back pain
CPT/HCPCS: 27096; 99199; G0260

== ENCOUNTER 2024-01-11 08:31 | Day surgery (SDC) | payer OTHER, SELFPAY ==
[2023-12-27 13:11] VITALS: BMI 45.1
--- NOTE | ~2024-01-11 | XR_ITS ---
EXAMINATION: XR fluoroscopy no charge DATE: 01/11/2024 09:16 INDICATION: Sacroiliitis. TECHNIQUE: 25 intraoperative fluoroscopic views of the pelvis were obtained. I was not present. Fluor oscopy exposure time was 14 seconds. COMPARISON: CT lumbar spine 02/23/2023 FINDINGS: Images demonstrate needles in the sacroiliac joints. IMPRESSION: 1. Injection of the bilateral sacroiliac joints. Reviewed, dictated and finalized at location A.
--- NOTE | 2024-01-11 08:24 | WPDHPUPDATE1 ---
History and Physical Update Update Date/Time: 01/11/24 08:24 History and Physical has been reviewed, including an updated exam of the patient. There are NO changes in the patient's condition. Risks, benefits, and alternatives have been discussed and questions answered. Patient agrees to proceed with procedure.
--- NOTE | 2024-01-11 08:25 | W.PM.PROC2 ---
Procedure Note - Detailed Date of Procedure 01/11/24 Pre-op Diagnosis Sacroiliitis Surgeon Willy Thomas MD
--- NOTE | 2024-01-11 08:28 | W.PM.PROC2 ---
Procedure Note - Detailed Date of Procedure 01/11/24 Pre-op Diagnosis Sacroiliitis Post-op Diagnosis Same Procedure Performed Diagnostic/Prognostic Block of the bilateral Sacroiliac Joint by Intra-Articular Injection of Local Anesthetic Under Fluoroscopic Guidance and With Contrast Control. Surgeon Willy Thomas MD Upholstery Estimator None. Anesthesia Local ([Local anesthetic infiltration] in the prone position.) Description of Procedure INFORMED CONSENT: Risks, benefits and alternatives to the procedure were discussed in detail with the patient who expressed explicit understanding and consent to proceed. Patient was informed verbally and in written form regarding the risks associated with the procedure including the low risk of serious infection, bleeding/bruising, allergic reaction, local anesthetic toxicity, nerve or organ injury, paralysis, procedural site pain or discomfort, worsening pain and/or mobility, failure to treat and/or disfigurement. The patient expressed explicit understanding and consent to proceed. All materials required for the procedure were available prior to procedure start. Site and side were marked prior to procedure and confirmed in the presence of the patient. PROCEDURE IN DETAIL: The patient was brought to the procedural suite and placed in the prone position. Patient was made comfortable with use of pillows under the head/chest, hips and ankles. Skin overlying the injection site on the affected side was prepared broadly with ChloraPrep applicator and draped in a sterile manner. Aseptic technique was used throughout. The right SI joint was identified in the AP view and contralateral oblique angulation with caudal tilt was utilized to optimize visualization of the inferior and medial joint line representing the posterior joint space. Local anesthesia was established by infiltration with approximately 5 mL of 2% PF lidocaine via a 1-1/2 inch 27-gauge needle. A 22-gauge 5.0 inch Quincke spinal needle was advanced until the needle entered the inferior third of the posterior joint space approximately 1cm cephalad from its most inferior point. Appropriate final needle position was confirmed in the AP, lateral and oblique views. In the oblique view, 0.5 mL of Omnipaque 300 contrast medium was injected after negative aspiration for CSF, blood or other bodily fluid, showing appropriate intra-articular spread of contrast without evidence of intravascular, perineural or intrathecal placement. 1.5 mL of 0.5% PF bupivacaine was injected after repeat negative aspiration. Appropriate spread of the injectate was confirmed with washout of previous injected contrast. No parasthesias were elicited. Needle was removed completely intact without difficulty. The same exact procedure was repeated for all remaining levels on the contralateral side, left SI joint, modified as necessary to accommodate for the new target location with identical findings/results and no evidence of complication. Images were saved and documented in the patient chart. Patient's skin was cleansed and sterile bandage applied. The patient tolerated the procedure well. The patient was transported to the recovery area in stable condition where they were observed for an appropriate amount of time prior to discharge, without evidence of complication. The patient was instructed to avoid excessive activity for the next 48 hours, including climbing and frequent use of stairs. Showers only for 48 hours. They were instructed not to drive or operate heavy machinery for 24 hours. They are to monitor for severe headaches, fevers, chills, night sweats, erythema/swelling at the site or any other signs of infection, bleeding/bruising, bowel or bladder changes as well as new pain, weakness or numbness in the upper or lower extremity. Should they notice these changes, they are instructed to call our office immediately or report directly to the nearest Emergency Department if no answer or if after posted office hours
[2024-01-11 08:52] VITALS: BP 139/98; PULSE 86; RESP 20; TEMP 36.7; O2SAT 98; BMI 45.0
[2024-01-11 09:06] VITALS: BP 146/71; PULSE 77; RESP 12; O2SAT 98
[2024-01-11 09:12] VITALS: BP 134/64; PULSE 76; RESP 17; O2SAT 98
[2024-01-11] MEDS: BUPivacaine HCL 0.5% PF 30 ML VIAL INFILTRATE (09:16)
[2024-01-11] MEDS: LIDOCAINE HCL 1% PF INJ 5 ML VIAL 6 ML INFILTRATE (09:18)
[2024-01-11 09:20] VITALS: BP 119/85; PULSE 79; RESP 16; O2SAT 99
== END 2024-01-11 09:30 | disposition home or self-care (01) ==
PROVIDERS: PCP Physician Assistant Medical; Visit Provider Anesthesiology Pain Medicine
PROC: (CPT G0260; principal; 2024-01-11 09:30)
DX: M46.1 Sacroiliitis, not elsewhere classified (principal)
CPT/HCPCS: G0260 ×2; 27096; 99199

== ENCOUNTER 2024-01-13 12:45 | Outpatient (CLI) | payer OTHER, SELFPAY ==
--- NOTE | ~2024-01-13 | CT_ITS ---
EXAMINATION: CT pelvis wo con DATE: 01/13/2024 12:59 INDICATION: Bilateral pelvic pain. Low back pain. TECHNIQUE: Computed tomography (CT) of the pelvis was performed without intravenous contrast. Automat ed exposure control and iterative reconstruction technique were employed. The dose-length product was 638.73 mGy-cm. COMPARISON: None FINDINGS: There is an intrauterine device in expected position. There are no pathologically enlarged lymph nodes. There is no free intraperitoneal fluid. There are no dilated loops of bowel. There is mi ld osteoarthritis of the hips. There is moderate lower lumbar spondylosis. IMPRESSION: 1. Mild osteoarthritis of the hips. Reviewed, dictated and finalized at location A.
== END 2024-01-13 12:46 | disposition home or self-care (01) ==
PROVIDERS: PCP Anesthesiology Pain Medicine; Visit Provider Anesthesiology Pain Medicine
DX: M46.1 Sacroiliitis, not elsewhere classified (principal); M47.817 Spondylosis without myelopathy or radiculopathy, lumbosacral region; G89.29 Other chronic pain; M16.0 Bilateral primary osteoarthritis of hip
CPT/HCPCS: 72192

== ENCOUNTER 2024-01-31 00:13 | Day surgery (SDC) | payer OTHER, SELFPAY ==
[2024-01-24 08:28] VITALS: BMI 44.4
--- NOTE | 2024-01-24 08:34 | PC.NURSE ---
Report to the Outpatient Waiting Room, entrance under the green pavilion located off [facility], at time _1100_ on date _[id number]_. Planned Procedure Time: _1pm_.? Time changes happen often and if your time is changed the preop area will call you the afternoon before. - You and your visitor will be asked to self-screen and do not enter if you have any COVID symptoms. Please call surgeon if you need to reschedule. - A mask is optional within the hospital at this time. - No food or drink from midnight until time of surgery and no smoking Take only the following medications with a SIP of water on the morning of surgery: ____None DO NOT STOP ANY OF YOUR OTHER PRESCRIPTION MEDICATIONS PRIOR TO SURGERY EXCEPT THE FOLLOWING Medications to discontinue per physician None Please no make-up, nail bulgarian, hairspray, perfume, deodorant, or body powder the day of surgery.? No jewelry (including any body piercings) or valuables the day of surgery, leave them at home.? Please take a shower or bath the night before, or the morning of, surgery with an antibacterial soap.? Wear comfortable, loose fitting clothing.? - Jewelry must be removed prior to entering the operating room.? Rings and piercings that are not removed may be cut off. - The hospital will not accept responsibility for valuables.? - Please leave all valuables, including medications, at home the day of surgery. If you are going home after surgery, a licensed milk truck driver must drive you home.? - NO public transportation without another adult if you receive anesthesia. - We recommend that an adult stay with you for 24 hours following discharge. - We also recommend that you do not drive, make important decision, drink alcoholic beverages, or take any drugs that were not prescribed by your health care provider for at least 24 hours after your discharge time. Follow any additional instructions given to you from your surgeon. Telephone instructions given to __Domonique___and asked if any additional questions and then verbalized understanding. Patient advised to call surgeon office or pre surgery nurse liaison [phone] if any additional questions.
--- NOTE | ~2024-01-31 | XR_ITS ---
EXAMINATION: XR fluoroscopy no charge DATE: 01/31/2024 11:01 INDICATION: Bilateral L3, L4 and L5 medial branch radiofrequency ablation TECHNIQUE: 7 fluoroscopic images of the lower lumbar spine were obtained during procedure performed je Thomas. Radiologist was not present for the imaging or procedure. The amount of fluoroscopy time used during this procedure was 0.8 minutes. Total DAP was 10.185 Gycm^2 COMPARISON: None FINDINGS/IMPRESSION: Images demonstrate needle tips projecting along the posterior superior margins at the junction of the transverse processes and pedicles bilaterally at L4, L5 and S1. See procedure note for further detai l. Reviewed, dictated and finalized at location A.
--- NOTE | 2024-01-31 06:20 | PM.HPGS ---
History of Present Illness History of Present Illness Consent: Risks, benefits, and alternatives have been discussed and questions answered. Patient agrees to proceed with procedure. Chief complaint: lumbosacral spondylosis, chronic low back pain Narrative: Domonique Benton is a 33 year old female with chronic, recalcitrant and disabling bilateral lumbosacral back pain secondary to degenerative spondylosis with failure to respond to aggressive conservative measures including PT, oral and topical analgesics, opioid and nonopioid analgesics, rest, time and activity/behavioral modification over the past 1-2 years who presents for thermal radiofrequency ablation of the bilateral L3, L4, L5 medial branches / dorsal rami to address bilateral L3 4-5, L5-S1 facet joints under fluoroscopic guidance. patient had prior, significant and concordant response to a series of 2 lumbosacral medial branch/dorsal rami blocks with intervening recurrence of bilateral SI joint arthropathy recently addressed with diagnostic/ prognostic SI blocks (positive but incomplete). Patient wishes to move forward with thermal RF ablation of the lumbar facets , as previously planned, for completion of her therapy for multifocal chronic low back pain secondary to lumbosacral spondylosis, lumbosacral facet and SI joint arthropathy. Review of Systems Review of Systems: Patient denies any new infectious, allergic, cardiopulmonary, neurologic or constitutional symptoms or changes in activity tolerance or exercise capacity including new or progressive SOB/ORDOÑEZ, peripheral edema, productive cough, dysuria, nausea/vomiting, diarrhea, weight change, fevers/chills/night sweats, new or progressive neurologic deficit, cognitive or mood changes since last seen, except as documented in the HPI. All systems reviewed & are unremarkable except as noted in HPI and below PMFSH Past Medical History Medical History Chronic low back pain Collar bone fracture COVID-19 Depression Lipoma of back Retained placenta URI (upper respiratory infection) Vitamin B12 deficiency Vitamin D deficiency Surgical History Surgical History History of dilatation and curettage 2010 No significant past surgical history Family History Family History Other No significant family history Social History Social History Years smoked: 19 Smoking status: Former smoker Tobacco type: cigarettes and e-cigarettes/vaping Second hand tobacco smoke exposure: Yes Smoking end date: 09/23/23 Alcohol intake: never Substance use: never Substance use type: does not use Do You Feel Safe in your Home?: Yes Lack of Transportation: No Lack of Food: Never True Current Housing: I Have Housing Concerned About Future Housing: No Difficulty Paying Gas/Electric Bills: No Difficulty Paying for Meds: No Currently Unemployed: No Education: Trade/Vocational Certificate Difficulty w/ Childcare or Family Care: No Living arrangements: with family Occupation/Education: occupation Gender identity (if verbalized by the patient): Female Sexual Orientation (if Verbalized by the Patient): Straight or Heterosexual Spiritual care concerns: No Meds Home Medications and Allergies Home Medications Medication Instructions Recorded Confirmed Type No Home Medications 01/11/24 01/24/24 History Allergies Allergy/AdvReac Type Severity Reaction Status Date / Time carbamazepine Allergy Intermediate Hives Verified 01/24/24 08:28 Exam Narrative: The patient's physical exam is essentially unchanged from prior examination on 12/14/2023. Specifically, patient demonstrates normal lung capacity, tidal volume and respiratory rate without wheezes, crackles,
--- NOTE | 2024-01-31 06:25 | WPDHPUPDATE1 ---
History and Physical Update Update Date/Time: 01/31/24 06:25 History and Physical has been reviewed, including an updated exam of the patient. There are NO changes in the patient's condition. Risks, benefits, and alternatives have been discussed and questions answered. Patient agrees to proceed with procedure.
--- NOTE | 2024-01-31 06:27 | W.PM.PROC2 ---
Procedure Note - Detailed Date of Procedure 01/31/24 Pre-op Diagnosis lumbosacral spondylosis, chronic low back pain Post-op Diagnosis Same Procedure Performed Thermal Radiofrequency Ablation of the Bilateral Lumbar Medial Branches/Dorsal Ramus at the L3, L4, L5 Levels Treating the bilateral L4-5, L5-S1 Facet Joints Under Fluoroscopic Guidance ( 4 Levels Treated). Surgeon Willy Thomas MD Spectrographer None. Anesthesia Local (w/ MAC) Description of Procedure INFORMED CONSENT: Risks, benefits and alternatives to the procedure were discussed in detail with the patient who expressed explicit understanding and consent to proceed. Patient was informed verbally and in written form regarding the risks associated with the procedure including the low risk of serious infection, bleeding/bruising, allergic reaction, nerve or organ injury, paralysis, procedural site pain or discomfort, worsening pain and/or mobility, failure to treat and/or disfigurement. The patient expressed explicit understanding and consent to proceed. All materials required for the procedure were available prior to procedure start. Site and side were marked prior to procedure and confirmed in the presence of the patient. PROCEDURE IN DETAIL: The patient was brought to the procedural suite and placed in the prone position. Patient was made comfortable with use of pillows under the head/chest, hips and ankles. ASA standard monitors were applied and used throughout the procedure. Skin overlying the injection site on the affected side(s) was prepared broadly with ChloraPrep applicator and draped in a sterile manner. Aseptic technique was used throughout. The endplates of the vertebral bodies at the site(s) of interest were aligned in the AP view. Ipsilateral oblique angulation was utilized to optimize visualization of the intersection between the superior articulating process and transverse process at each target site. Local anesthesia was established by infiltration with approximately 5 mL of 1% lidocaine via a 1-1/2 inch 27-gauge needle divided over each site treated. A 16-gauge 150mm Intact Vascularian RF needle with curved 10mm active tip was advanced in the AP view until the needle tip contacted the periosteum at the target site, the right L3 medial branch. Lateral view was utilized to adjust and confirm the appropriate placement of the needle tip just anterior to the facet line, superior to the pedicle and posterior to the foramen. Grounding electrode was in place and functioning. The appropriately-sized RF cannula was inserted into the RF needle and motor stimulation was performed with no subjective or objective evidence of recruited muscle activity with stimulation up to 2.0 volts at a frequency of 2Hz. 1.5 mL of 2.0% PF lidocaine was injected after negative aspiration. After a 90s pause, lesioning was performed to 90 degrees centigrade for 90s ensuring lack of symptoms in the extremity throughout. Needle was rotated 180 degrees and lesioning repeated in a similar manner. Patient tolerated this well. No parasthesias were elicited. Needle was removed completely intact without difficulty. The same procedure was repeated for all intended levels/ structures on the ipsilateral side, right L4, L5 medial branch/dorsal ramus with identical methodology, modified to compensate for new location, with similar results and no evidence of complication. The same exact procedure was repeated for all remaining levels on the contralateral side, left L3, L4, L5 medial branches/dorsal ramus, modified as necessary to accommodate for the new target location with identical findings/results and no evidence of complication. Images were saved and documented in the patient chart. Patient's skin was cleansed and sterile bandage applied. The patient tolerated the procedure well. The patient was transported to the recovery area in stable condition where they were observed for an appropriate amount of time prior to discharge, witho
[2024-01-31 09:45] VITALS: BP 141/81; PULSE 94; RESP 20; TEMP 36.3; O2SAT 98
[2024-01-31 10:07] VITALS: BMI 45.4
--- NOTE | 2024-01-31 10:10 | WPDANESEPPF ---
Anes - Initial Pre Proc Eval Procedure: Operation Date: 01/31/24 11:15 Proposed Procedures p Bilateral L3, L4, L5 Medial Branch/Dorsal Ramus Thermal Radio Frequency Ablation Under Fluoroscopic Guidance - Willy Thomas MD Date/Time: 01/31/24 10:10 Surgeon: Willy Thomas MD Pre Op Diagnosis: lumbosacral spondylosis, chronic low back pain Patient Data Age: 33 Gender: F Height: 1.75 m Weight: 139.7 kg Last Vital Signs Temp 36.3 C L 01/31/24 09:45 Pulse 94 01/31/24 09:45 Resp 20 01/31/24 09:45 BP 141/81 H 01/31/24 09:45 Pulse Ox 98 01/31/24 09:45 Allergies Allergy/AdvReac Type Severity Reaction Status Date / Time carbamazepine Allergy Intermediate Hives Verified 01/31/24 10:06 Home Medications Medication Instructions Recorded Confirmed Type No Home Medications 01/11/24 01/24/24 History Patient hx anesthesia problems: none Family hx anesthesia problems: none Results Review: All pre-operative results and documents have been reviewed as part of the pre-operative evaluation. [facility] Past Medical History Medical History Chronic low back pain Collar bone fracture COVID-19 Depression Lipoma of back Retained placenta URI (upper respiratory infection) Vitamin B12 deficiency Vitamin D deficiency Surgical History Surgical History History of dilatation and curettage 2010 No significant past surgical history Family History Family History Other No significant family history Social History Social History Years smoked: 19 Smoking status: Former smoker Tobacco type: cigarettes and e-cigarettes/vaping Second hand tobacco smoke exposure: Yes Smoking end date: 09/23/23 Alcohol intake: never Substance use: never Substance use type: does not use Do You Feel Safe in your Home?: Yes Lack of Transportation: No Lack of Food: Never True Current Housing: I Have Housing Concerned About Future Housing: No Difficulty Paying Gas/Electric Bills: No Difficulty Paying for Meds: No Currently Unemployed: No Education: Trade/Vocational Certificate Difficulty w/ Childcare or Family Care: No Living arrangements: with family Occupation/Education: occupation Gender identity (if verbalized by the patient): Female Sexual Orientation (if Verbalized by the Patient): Straight or Heterosexual Spiritual care concerns: No Anes - Eval Final PreProcedure Day of Procedure 01/31/24 10:10 Patient weight: morbidly obese Heart: regular rate and rhythm Lungs: clear to auscultation Airway: Mallampati scale class II Neurological: alert and oriented Last oral intake: >/= 8 hours ASA classification: III Emergent: no Anesthetic plan: proceed Anesthesia type and monitoring: general GIVS and standard monitoring Results Review: All pre-operative results and documents have been reviewed as part of the pre-operative evaluation. Informed Consent: The patient's anesthetic plan and its attendant risks and benefits were discussed with the patient/family/POA. Questions were solicited and answers provided to the satisfaction of the patient/family/POA.
[2024-01-31 10:12] LABS: BEDSIDEPREGUCG Negative (Negative)
[2024-01-31] MEDS: LIDOCAINE HCL 2% PF INJ 5 ML VIAL 10 ML INFILTRATE (10:39)
[2024-01-31] MEDS: LIDOCAINE HCL 1% PF INJ 5 ML VIAL INFILTRATE (10:40)
[2024-01-31 11:02] VITALS: BP 131/67; PULSE 82; RESP 14; O2SAT 99
[2024-01-31] MEDS: LACTATED RINGERS 1,000 ML 30 ML IV CONT (11:02)
[2024-01-31 11:30] VITALS: BP 123/66; PULSE 73; RESP 15; O2SAT 99
[2024-01-31] MEDS: fentaNYL CITRATE INJ (*CRX) 100 MCG/2 ML VIAL 25 MCG IV PUSH ×2 (11:30→11:49)
[2024-01-31] MEDS: oxyCODONE HCL (*CRX) 5 MG TAB IR PO (11:52)
[2024-01-31 12:00] VITALS: BP 134/79; PULSE 68; RESP 15
[2024-01-31 12:30] VITALS: BP 130/82; PULSE 68; RESP 15
[2024-01-31 12:41] VITALS: BP 118/70; PULSE 65; RESP 15
== END 2024-01-31 12:58 | disposition home or self-care (01) ==
PROVIDERS: PCP Physician Assistant Medical; Visit Provider Anesthesiology Pain Medicine
PROC: (CPT 64628; principal; 2024-01-31 11:15)
DX: M47.817 Spondylosis without myelopathy or radiculopathy, lumbosacral region (principal); G89.29 Other chronic pain; F32.A Depression, unspecified; E53.8 Deficiency of other specified B group vitamins; E55.9 Vitamin D deficiency, unspecified; E66.01 Morbid (severe) obesity due to excess calories; Z68.42 Body mass index [BMI] 45.0-49.9, adult; Z98.890 Other specified postprocedural states; Z87.891 Personal history of nicotine dependence; Z86.018 Personal history of other benign neoplasm
CPT/HCPCS: 64628; 64629 ×2; 99199; A9270; J1100; J1170; J2250; J2405; J2704; J3010; J7120; Q9965

== ENCOUNTER 2024-06-06 00:07 | Day surgery (SDC) | payer OTHER, SELFPAY ==
--- NOTE | 2024-05-29 08:07 | PC.NURSE ---
Report to the Outpatient Waiting Room, entrance under the green pavilion located off [facility], at time _0600_ on date _[id number]_. Planned Procedure Time: __0730_.? Time changes happen often and if your time is changed the preop area will call you the afternoon before. - You and your visitor will be asked to self-screen and do not enter if you have any COVID symptoms. Please call surgeon if you need to reschedule. - A mask is optional within the hospital at this time. Nothing to eat or drink after midnight day of surgery. Take only the following medications with a SIP of water on the morning of surgery: ____None DO NOT STOP ANY OF YOUR OTHER PRESCRIPTION MEDICATIONS PRIOR TO SURGERY EXCEPT THE FOLLOWING Medications to discontinue per physician None Date to take last dose Please no make-up, nail serbian, hairspray, perfume, deodorant, or body powder the day of surgery.? No jewelry (including any body piercings) or valuables the day of surgery, leave them at home.? Please take a shower or bath the night before, or the morning of, surgery with an antibacterial soap.? Wear comfortable, loose fitting clothing.? - Jewelry must be removed prior to entering the operating room.? Rings and piercings that are not removed may be cut off. - The hospital will not accept responsibility for valuables.? - Please leave all valuables, including medications, at home the day of surgery. If you are going home after surgery, a licensed pharmacy delivery driver must drive you home.? - NO public transportation without another adult if you receive anesthesia. - We recommend that an adult stay with you for 24 hours following discharge. - We also recommend that you do not drive, make important decision, drink alcoholic beverages, or take any drugs that were not prescribed by your health care provider for at least 24 hours after your discharge time. Follow any additional instructions given to you from your surgeon. Telephone instructions given to __Domonique___and asked if any additional questions and then verbalized understanding. Patient advised to call surgeon office or pre surgery nurse liaison [phone] if any additional questions.
[2024-05-29 08:15] VITALS: BMI 44.4
[2024-06-06] VITALS (10 sets, daily range): BP systolic 114–145; BP diastolic 66–95; PULSE 56–88; RESP 12–18; TEMP 36.1–36.4; O2SAT 95–100; BMI 45.7
--- NOTE | ~2024-06-06 | XR_ITS ---
INTRAOPERATIVE FLUOROSCOPY: CLINICAL HISTORY: 33 years old Female; SI JOINT ARTHRODESIS PROCEDURE COMMENTS: Limited intraoperative fluoroscopy of the lumbosacral spine was performed. CUMULATIVE DOSE: 324 mGy FLUOROSCOPY TIME: 4 minutes and 25 seconds FINDINGS/IMPRESSION: Please refer to operative note for further details. Reviewed, dictated and finalized at location [facility]
--- OUTSIDE RECORDS SUMMARY | 2024-06-06 00:10 | XMS_ITS | Referral Summary ---
Author Organization [facility] Address [address] [place] [address] Care Team Providers Care Refrigeration Operator Name Role Phone Meka Braga APRN-FASHION STYLIST Primary Care Provider [phone] Source Comments [facility],non-[facility] Affiliates and Associated Physician Practices is amultiple site organization consisting of ambulatory clinics and hospital sitesin [place], [place], [place] and [place]. This disclosure is being madepursuant to the Care Everywhere program and may not contain all information available regarding this patient. Last updated 18.[facility] Allergies Active Allergy Reactions Criticality Noted Date Comments Carbamazepine Rash,Fever Medium 06/06/2020 Medications * Be aware that medications may not be up to date on this document. Alwaysverify current medications with the patient. Medication Sig Dispensed Refills Start Date End Date Status Acetaminophen (TYLENOL PO) Take 1,000 mg by mouth Active IBUPROFEN PO Take 1,000 mg by mouth Active Active Problems Problem Noted Date Diagnosed Date BMI 40.0-44.9, adult 12/30/2020 Vitamin D deficiency 12/30/2020 History of smoking 12/30/2020 Snoring 12/30/2020 COVID-19 12/30/2020 Class 3 severe obesity due t o excess calories with serious comorbidity and body mass index (BMI) of 40.0 to 44.9 in adult 01/15/2019 Acute cystitis without hematuria 01/12/2019 Chronic cluster headache, not intractable 2018 Dental abscess 01/17/2018 Abnormal TSH 11/11/2016 Bilateral swelling of feet 11/11/2016 GERD (gastroesophageal reflux disease) 7 Cervical lymphadenopathy 10/20/2016 Chronic UTI 10/20/2016 Bipolar disorder 09/15/2016 Chest wall mass 08/31/2016 Chronic cough 08/31/2016 Chronic pain 08/31/2016 Dyshidrotic eczema 08/12/2016 Acute low back pain 08/11/2016 Anxiety 02/21/2016 Social History Tobacco Use Types Packs/Day Years Used Date Smoking Tobacco: Former Cigarettes Q uit: 07/01/2020 Smokeless Tobacco: Never Tobacco Cessation:Ready to Q uit: Yes; Counseling Given: Yes Comments:1-2 daily Alcohol Use Standard Drinks/Week Comments Yes 0 (1 standard drink = 0.6 oz pur e alcohol) rare Sex and Gender Information Value Date Recorded Sex Assigned at Not on file Gender Identity Not on file Sexual Orientation Not on file Last Filed Vital Signs Vital Sign Reading Time Taken Comments Blood Pressure 145/88 10/11/2020 2:12 PM CDT Pulse 89 10/11/2020 2:12 PM CDT Temperature 36.7 ??C (98.1 ??F) 10/11/2020 2:12 PM CD T Respiratory Rate 18 10/11/2020 2:12 PM CDT Oxygen Saturation 97% 10/11/2020 2:12 PM CDT Inhaled Oxygen Concentration - - Weight 126.1 kg (278 lb) 02/06/2021 3:00 PM CDT Height 174 cm (5' 8.5 ) 02/06/2021 3:00 PM CDT Body Mass Index 41.65 02/06/2021 3:00 PM CDT Functional Status Functional Status Response Date of Assess ment Is person deaf or have serious hearing difficult y? No 09/11/2020 Is person blind or have serious difficulty seein g? No 09/11/2020 Does person have serious dif ficulty walking/climbing stairs? No 09/11/2020 Does person have difficulty dressing/bathing? No 09/11/2020 Does person have difficulty doing errands alone? No 09/11/2020 Cognitive Status Response Date of Assessm ent Does person have difficulty concentrating/remembering/making decisions? No 09/11/2020 Plan of Treatment Not on file Care Teams Refrigeration Operator Relationship Specialty Start Date End Date Meka Braga APRN-CRYSTAL [address] [place] [id number] PCP - General Nurse Practitioner 05/15/20
--- OUTSIDE RECORDS SUMMARY | 2024-06-06 00:10 | XMS_ITS | Clinical Summary ---
Author Organization [facility] Address [address] [place] [address] Care Team Providers Care Machine Pan Greaser Name Role Phone Meka Braga APRN-AUTO AIR CONDITIONING INSTALLER Primary Care Provider [phone] Source Comments [facility],non-[facility] Affiliates and Associated Physician Practices is amultiple site organization consisting of ambulatory clinics and hospital sitesin [place], [place], [place] and [place]. This disclosure is being madepursuant to the Care Everywhere program and may not contain all information available regarding this patient. Last updated 18.[facility] Allergies Active Allergy Reactions Criticality Noted Date [...] Acute low back pain 08/11/2016 Anxiety 02/21/2016 Family History Medical History Relation Name Comments Diabetes; unknown type Brother Hypertension Maternal Grandfather Diabetes; unknown type Mother Asthma Sister Relation Name Status Comments Brother Maternal Grandfather Mother Sister Social History Tobacco Use Types Packs/Day Years [...] Mass Index 41.65 02/06/2021 3:00 PM CDT Plan of Treatment Health Maintenance Due Date Last Done Comments PAP SMEAR 1991 HIV SCREENING 12/05/2006 HEPATITIS C SCREENING 12/01/2009 DTAP/TDAP/TD VACCINES (1 - Tdap) 12/05/2010 HEPATITIS B VACCINE (1 of 3 - 19+ 3-dose series) 12/05/2010 COVID-19 VACCINE (2 - 2023-2 5 season) 2024 01/06/2021 INFLUENZA VACCINE (#1) 2024 9, 05/25/2013 ZOSTER VACCINE (1 of 2) 12/05/2041 HIB VACCINE Aged Out No longer eligi ble based on patient's age to complete this topic HPV VACCINE Aged Out No longer eligi ble based on patient's age to complete this topic MENINGOCOCCAL (Group B) VACCINE Aged Out No longer eligible b ased on patient's age to complete this topic MENINGOCOCCAL VACCINE Aged Out No dwight nohemy eligible based on patient's age to complete this topic PNEUMOCOCCAL VACCINE Aged Out No long er eligible based on patient's age to complete this topic Care Teams Machine Pan Greaser Relationship Specialty Start Date End Date Meka Braga APRN-CNP [address] [place] [id number] PCP - General Nurse Practitioner 05/15/20
--- OUTSIDE RECORDS SUMMARY | 2024-06-06 00:10 | XMS_ITS | Patient Health Summary ---
Author Organization [facility] Address [address] [place] [address] Care Team Providers Care Instructor Bus Trolley And Taxi Name Role Phone Meka Braga AYESHA-DIVERSIFIED CROPS FARMER Primary Care Provider [phone] Note from [facility],non-owned Affiliates and Associated Physician Practices is amultiple site organization consisting of ambulatory clinics and hospital sitesin [place], [place], [place] and [place]. This disclosure is being madepursuant to the Care Everywhere program and may not contain all information available regarding this patient. Last updated 18.[facility] Allergies * Carbamazepine(Rash,Fever) -Medium Criticality Medications * Be aware that medications may not be up to date on this document. Alwaysverify current medications with the patient. * Acetaminophen (TYLENOL PO) Take 1,000 mg by mouth * IBUPROFEN PO Take 1,000 mg by mouth Active Problems Problem Noted Date Diagnosed Date [...] Mass Index 41.65 02/06/2021 3:00 PM CDT Procedures * SARS-COV-2 (COVID-19) IN HOUSE(Performed 10/12/2020) Performed for Pre-operative laboratory examination * SARS-COV-2 (COVID-19) PANEL (SOIL)(Performed 10/12/2020) Performed for Pre-operative laboratory examination * E ANTIGEN TYPING (Camalize SL BB)(Performed 10/11/2020) Performed for Morbid obesity (HCC), Preop examination * ANTIBODY IDENTIFICATION(Performed 10/11/2020) Performed for Morbid obesity (HCC), Preop examination * TYPE + SCREEN PANEL(Performed 10/11/2020) Performed for Morbid obesity (HCC), Preop examination * CBC W AUTO DIFFERENTIAL(Performed 10/11/2020) Performed for Morbid obesity (HCC), Preop examination * BASIC METABOLIC PANEL (CALCIUM TOTAL)(Performed 10/11/2020) Performed for Morbid obesity (HCC), Preop examination * NICOTINE METABOLITE URINE(Performed 09/20/2020) * GROSS + MICRO EXAM (ILL)(Performed 09/11/2020) Performed for Gastroesophageal reflux disease, unspecified whether esophagitis present * WI EGD FLEX TRANSORAL W BX SNGL OR MULT(Performed 09/11/2020) Performed for Gastroesophageal reflux disease, unspecified whether esophagitis present * HCG URINE QUALITATIVE(Performed 09/11/2020) Performed for Pre-op testing * SARS-COV-2 (COVID-19) IN HOUSE(Performed 09/08/2020) Performed for Pre-operative laboratory examination * SARS-COV-2 (COVID-19) PANEL (SOIL)(Performed 09/08/2020) Performed for Pre-operative laboratory examination * EKG 12-LEAD(Performed 06/10/2020) * LAB MISC TEST(Performed 06/10/2020) * XR CHEST 2VW(Performed 06/10/2020) Results * SARS-COV-2 (COVID-19) IN HOUSE (10/12/2020 8:37 AM CDT) Only the most recent of2 resultswithin the time period is included. COVID-19 PCR Not detected Not detected 10/13/2020 12:16 PM CDT [facility] Microbiology SPECIMEN FROM NASOPHARYNGEAL STRUCTURE / Unknown Collection / Unknown 10/12/2020 8:37 AM CDT 10/12/2020 8:37 AM CDT Narrative [facility] - 10/13/2020 12:16 PM CDT This nucleic acid amplification assay performance was validated by [facility]. This test has been authorized by the Food and Drug administration (FDA)under an Emergency??Use Authorization (EUA). This test has been validated in accordance with the FDA's guidance document Policy for Diagnostic Testing in Laboratories Certified to perform High Complexity Testing under CLIA prior to Emergency Use Authorization for Coronavirus Disease-2019 during the Public Health Emergency issued on July 08, 2019. FDA independent review of this validation is pending. This test is only authorized for the duration of time the declaration that circumstances exist justifying the authorization of emergency use of in vitro diagnostic tests for detection of SARS-CoV-2 virus and/or diagnosis of COVID-19 infection under section 564(b)(1) of the Act, 21 U.S.C 360bbb-3 (b)(1), unless the authorization is terminated or revoked sooner. Fact Sheets for this EUA assay are available upon request. Blaire Daigle MD LAB - MICROBIOLO GY ORDERABLES [facility] [address] [place] [address], [facility] [phone] * E ANTIGEN TYPING ([facility] BB) (10/11/2020 2:08 PM CDT) E Antigen NEG 10/11/2020 4:34 PM CDT [facility] [place] Antigen POS 10/11/2020 4:34 PM CDT [facility] Blood Bank BLOOD SPECIMEN / Unknown Venipuncture / Unknown 10/11/2020 2:08 PM CDT 10/11/2020 2:14 PM CDT Karrie Peterson APRN-DIVERSIFIED CROPS FARMER LAB - BLOOD BANK ORDERABLES Performing Organization Address [facility] Co de Phone Number [facility] [address] [place], [place] [address] * TYPE + SCREEN PANEL (10/11/2020 2:08 PM CDT) ABO Rh A POS 10/11/2020 3:07 PM CDT [facility] Comment:No history; collect retype. Antibody Screen POS 3:07 PM CDT [facility] Blood Bank BLOOD SPECIMEN / Unknown Venipuncture / Unknown 10/11/2020 2:08 PM CDT 10/11/2020 2:14 PM CDT Karrie Peterson APRN-DIVERSIFIED CROPS FARMER LAB - BLOOD BANK ORDERABLES Performing Organization Address City/[facility]/ZIP Co de Phone Number [facility] [address] * ANTIBODY IDENTIFICATION (10/11/2020 2:08 PM CDT) [facility] Antibody 1 POS, Anti-E 10/11/2020 4:16 PM CDT [facility] Blood Bank BLOOD SPECIMEN / Unknown Venipuncture / Unknown 10/11/2020 2:08 PM CDT 10/11/2020 2:14 PM CDT Karrie Peterson FLYER BUILDER-DIVERSIFIED CROPS FARMER LAB - BLOOD BANK ORDERABLES [facility] [address] * (ABNORMAL) CBC W AUTO DIFFERENTIAL (10/11/2020 2:08 PM CDT) [facility] WBC 12.0(H) 4.0 - 10.0 x10E9/L 10/11/2020 2:17 PM CDT AM [facility]ORY RBC 4.97 3.93 - 5.22 x10E12/L 10/11/2020 2:17 PM CDT [facility] Hemoglobin 15.3 11.2 - 15.7 gm/dL 10/11/2020 2:17 PM CDT [facility] Hematocrit 44.2 34.1 - 44.9 % 10/11/2020 2:17 PM CDT [facility] MCV 88.9 78.0 - 100.0 fl 10/11/2020 2:17 PM CDT [facility] MCH 30.8 25.6 - 34.0 pg 10/11/2020 2:17 PM CDT [facility] MCHC 34.6 32.3 - 36.5 gm/dL 10/11/2020 2:17 PM CDT [facility] RDW 12.3 11.6 - 14.4 % 10/11/2020 2:17 PM CDT [facility] MPV 11.2 9.4 - 12.4 fl 10/11/2020 2:17 PM CDT [facility] Platelet Count 255 163 - 369 x10E9/L 10/11/2020 2:17 PM CDT [facility] Neutrophils % 69.2 40.0 - 75.0 % 10/11/2020 2:17 PM CDT [facility] Lymphocytes % 23.0 19.3 - 53.1 % 10/11/2020 2:17 PM CDT [facility] Monocytes % 3.8(L) 4.7 - 12.5 % 10/11/2020 2:17 PM CDT [facility] Eosinophils % 3.3 0.7 - 7.0 % 10/11/2020 2:17 PM CDT [facility] Basophils % 0.4 0.1 - 1.2 % 10/11/2020 2:17 PM CDT [facility] Immature Granulocytes 0.3 0 - 0.5 % 10/11/2020 2:17 PM CDT [facility] Neutrophil Absolute 8.26(H) 1.56 - 6.13 x10E9/L 10/11/2020 2:17 PM CDT [facility] Lymphocytes Absolute 2.75 1.18 - 3.74 x10E9/L 10/11/2020 2:17 PM CDT [facility] Monocytes Absolute 0.46 0.24 - 0.86 x10E9/L 10/11/2020 2:17 PM CDT [facility] Eosinophils Absolute 0.40 0.04 - 0.54 x10E9/L 10/11/2020 2:17 PM CDT [facility] Basophils Absolute 0.05 0.01 - 0.08 x10E9/L 10/11/2020 2:17 PM CDT [facility] Immature Granulocytes Absolute 0.03 0 - 0.03 x10E9/L 10/11/2020 2:17 PM CDT [facility] nRBC Auto 0 <=0 /100 WBC 10/11/2020 2:17 PM CDT [facility] nRBC Absolute 0.00 <=0 x10E9/L 10/11/2020 2:17 PM CDT [facility] Blood BLOOD SPECIMEN / Unknown Venipuncture / Unknown 10/11/2020 2:08 PM CDT 10/11/2020 2:14 PM CDT Karrie Peterson FLYER BUILDER-DIVERSIFIED CROPS FARMER LAB - HEMATOLOGY ORDERABLES [facility] [address] [place], [place] [id number] [place] [address] * (ABNORMAL) BASIC METABOLIC PANEL (CALCIUM TOTAL) (10/11/2020 2:08 PM CDT) [facility] Glucose 81 70 - 125 mg/dL 10/11/2020 2:39 PM CDT [facility] Sodium 136 136 - 145 mmol/L 10/11/2020 2:39 PM CDT [facility] Potassium 4.1 3.4 - 4.5 mmol/L 10/11/2020 2:39 PM CDT [facility] Chloride 105 98 - 107 mmol/L 10/11/2020 2:39 PM CDT [facility] CO2 21(L) 22 - 29 mmol/L 10/11/2020 2:39 PM CDT [facility] Calcium 9.85 8.4 - 10.2 mg/dL 10/11/2020 2:39 PM CDT [facility] Anion Gap 14 10 - 20 mmol/L 10/11/2020 2:39 PM CDT [facility] BUN 14.8 9.8 - 20.1 mg/dL 10/11/2020 2:39 PM CDT [facility] Creatinine 0.81 0.57 - 1.11 mg/dL 10/11/2020 2:39 PM CDT [facility] eGFR by MDRD >60 >60 mL/min/1.7 3m2 10/11/2020 2:39 PM CDT [facility] eGFR by MDRD >60 >60 mL/min/1.7 3m2 10/11/2020 2:39 PM CDT [facility] Blood BLOOD SPECIMEN / Unknown Venipuncture / Unknown 10/11/2020 2:08 PM CDT 10/11/2020 2:14 PM CDT Karrie Peterosn FLYER BUILDER-DIVERSIFIED CROPS FARMER LAB - CHEMISTRY ORDERABLES [facility] [address] [place], [place] [address] * NICOTINE METABOLITE URINE (09/20/2020) Urine URINE SPECIMEN OBTAINED BY CLEAN CATCH PROCEDURE / Unknown Historical Provider LAB - URINE CHEMI STRY ORDERABLES * GROSS + MICRO EXAM (ILL) (09/11/2020 10:46 AM CDT) Case Report Surgical Pathology Report ? Case: [id number] ? Authorizing Provider: ??Blaire Daigle MD ??Collected: ? 09/11/2020 10:46 AM ? Ordering Location: ? [facility] ?Received: ?09/11/2020 02:16 PM ? Pathologist: ? Antwan Peralta MD ? Specimen: ?Antrum Biopsy, Antrum of stomach biopsy to r/o H.Pylori ? 09/12/2020 9:09 AM [facility] Final Diagnosis Stomach, antrum, biopsy: - Antral mucosa with no significant histopathologic abnormality. - No Helicobacter pylori organisms identified (H&E exam). 09/12/2020 9:09 AM [facility] Microscopic Description and Comment The gastric mucosa is free of significant inflammation, epithelial alteration and negative for intestinal metaplasia, dysplasia and malignancy. Microscopic examination is performed and substantiates the above diagnosis. 09/12/2020 9:09 AM [facility] Clinical History Gastroesophageal reflux disease, unspecified whether esophagitis present. Per EMR Endoscopy report: - normal duodenum -normal gastric antrum -no bile reflux -no hiatal hernia -normal Z-line -normal esophagus 09/12/2020 9:09 AM CDT [facility] Gross Description Received in formalin labeled antrum of stomach biopsy are two pink soft irregular tissue fragments measuring 0.3 x 0.3 x 0.2 cm and 0.35 x 0.3 x 0.2 cm. Submitted in toto in A1. LS/lk 09/12/2020 9:09 AM CDT [facility] Disclaimer The performance characteristics of all immunohistochemical and indirect immunofluorescence stains (if any) cited in this report were determined by the Histopathology Laboratory of [facility]. Some of these tests were developed by our own laboratory and have not been cleared or approved by the US Food and Drug Administration. The FDA does not require this test to go through premarket FDA review. These tests are used for clinical purposes. They should not be regarded as investigational or for research. This laboratory is certified under the Clinical Laboratory Improvement Amendments (CLIA) as qualified to perform high complexity clinical laboratory testing. H&E slides [place] special [place]. [address] (CLIA# [id number]) unless otherwise specified. This case was interpreted by the [facility] Department of Pathology. When applicable, select reference laboratory testing is performed at the [facility], [address] [place] [address]. 09/12/2020 9:09 AM CDT [facility] Embedded Images 09/12/2020 9:09 AM CDT [facility] Pathology/Cytology GASTRIC ANTRAL BIOPSY SPECIMEN / Unknown 09/11/2020 10:46 AM CDT 09/11/2020 2:16 PM CDT Comment:Pre-op diagnosis: Gastroesophageal reflux disease, unspecified whether esophagitis present [K21.9] Blaire Daigle MD LAB - PATHOLOGY/ CYTOLOGY ORDERABLES Performing Organization Address City/State/[facility] Co de Phone Number [facility] [address] * HCG URINE QUALITATIVE (09/11/2020 7:28 AM CDT) hCG Qualitative Urine Negative Negative 09/11/2020 7:59 AM CDT [facility] Specific [place] UA 1.017 1.005 - 1.030 09/11/2020 7:59 AM CDT [facility] Urine URINE / Unknown Collection / Unknown 09/11/2020 7:28 AM CDT 09/11/2020 7:44 AM CDT Narrative [facility] - 09/11/2020 7:59 AM CDT Lokesh Hays MD LAB - URINALY SIS ORDERABLES [facility] [address] * LAB MISC TEST (06/10/2020) Blood BLOOD SPECIMEN / Unknown Historical Provider LAB SEND OUT * XR CHEST 2VW (06/10/2020) Anatomical Region Laterality Modality Chest Other Historical Provider DIAGNOSTIC IMAGIN G ORDERABLES * EKG 12-LEAD (06/10/2020) Historical Provider ECG ORDERABLES Care Teams Instructor Bus Trolley And Taxi Relationship Specialty Start Date End Date Meka Braga APRN-CRYSTAL [address] [place] [id number] PCP - General Nurse Practitioner 05/15/20
--- NOTE | 2024-06-06 05:10 | PM.HPGS ---
History of Present Illness History of Present Illness Consent: Risks, benefits, and alternatives have been discussed and questions answered. Patient agrees to proceed with procedure. Chief complaint: bilateral sacroiliitis, Chronic low back pain Narrative: Domonique Benton is a 33 year old female with chronic, recalcitrant and disabling bilateral lumbosacral back pain secondary to degenerative spondylosis, SI joint arthropathy and chronic sacroiliitis with failure to respond to aggressive conservative measures including PT, oral and topical analgesics, opioid and nonopioid analgesics, rest, time and activity/behavioral modification over the past 1-2 years who presents for minimally invasive posterior SI joint arthrodesis with lateral transfixation (Nevro 1) of the left sacroiliac joint under fluoroscopic guidance. Review of Systems Review of Systems: Patient denies any new infectious, allergic, cardiopulmonary, neurologic or constitutional symptoms or changes in activity tolerance or exercise capacity including new or progressive SOB/ORDOÑEZ, peripheral edema, productive cough, dysuria, nausea/vomiting, diarrhea, weight change, fevers/chills/night sweats, new or progressive neurologic deficit, cognitive or mood changes since last seen, except as documented in the HPI. All systems reviewed & are unremarkable except as noted in HPI and below PMFSH Past Medical History Medical History Chronic low back pain Collar bone fracture COVID-19 Depression Lipoma of back Retained placenta URI (upper respiratory infection) Vitamin B12 deficiency Vitamin D deficiency Surgical History Surgical History History of dilatation and curettage 2010 No significant past surgical history Family History Family History Other No significant family history Social History Social History Years smoked: 19 Smoking status: Former smoker Tobacco type: e-cigarettes/vaping Second hand tobacco smoke exposure: Yes Smoking end date: 09/23/23 Alcohol intake: never Substance use: never Substance use type: does not use Do You Feel Safe in your Home?: Yes Lack of Transportation: No Lack of Food: Never True Current Housing: I Have Housing Concerned About Future Housing: No Difficulty Paying Gas/Electric Bills: No Difficulty Paying for Meds: No Currently Unemployed: No Education: Trade/Vocational Certificate Difficulty w/ Childcare or Family Care: No Living arrangements: with family Occupation/Education: occupation Gender identity (if verbalized by the patient): Female Sexual Orientation (if Verbalized by the Patient): Straight or Heterosexual Spiritual care concerns: No Meds Home Medications and Allergies Home Medications ?Medication ?Instructions ?Recorded ?Confirmed ?Type No Home Medications 01/11/24 05/29/24 History Allergies Allergy/AdvReac Type Severity Reaction Status Date / Time carbamazepine Allergy Intermediate Hives Verified 05/29/24 08:12 Exam Narrative: The patient's physical exam is essentially unchanged from prior examination on 02/14/2024. Specifically, patient demonstrates normal lung capacity, tidal volume and respiratory rate without wheezes, crackles, rales or rubs. Heart rate and rhythm are regular without murmurs, gallops or rubs. No JVD. Pulses 2+ globally without increasing peripheral edema. AAOx3 with no evidence of confusion, intoxication or altered mental state, NC/AT without acute distress or altered consciousness. Speech, cognition, mood, insight and judgment at baseline and within normal limits. Assessment and Plan Assessment and plan (1) Bilateral sacroiliitis: Code(s): M46.1 - Sacroiliitis, not elsewhere classified Status: Acute (2) Lumbosacral spondylosis: Code(s): M47.817 - Spondylosis without myelopathy or radiculopathy, lumbosacral region Status: Acute (3) Chronic low back pain: Code(s): M54.50 - Low back pain, unspecified; G89.29 - Other chronic pain Status: Acute (4) Arthropathy of sacroiliac joint: Code(s): M47.818 - Spondylosis without myelopathy or radiculopathy, sacral and sacrococcygeal region Status: Acute Plan proceed as planned with minimally invasive posterior SI joint fusion with lateral transfixation of the left sacroiliac joint under fluoroscopic guidance.
--- NOTE | 2024-06-06 05:15 | WPDHPUPDATE1 ---
History and Physical Update Update Date/Time: 06/06/24 05:15 History and Physical has been reviewed, including an updated exam of the patient. There are NO changes in the patient's condition. Risks, benefits, and alternatives have been discussed and questions answered. Patient agrees to proceed with procedure.
--- NOTE | 2024-06-06 05:22 | P.OP_ITS ---
Procedure Note - Detailed Date of Procedure 06/06/24 Pre-op Diagnosis bilateral sacroiliitis, Chronic low back pain Post-op Diagnosis Same Procedure Performed Minimally-invasive instrumented intra-articular fusion of the left sacroiliac joint with lateral transfixation (Nevro1) under fluoroscopic guidance. Surgeon Willy Thomas MD Research Physician None. Anesthesia General Indications INDICATIONS:? Risks, benefits, and alternatives to the procedure were discussed in detail with the patient, who expressed explicit understanding and consent to proceed.? Risks discussed with the patient included but were not limited to risk of serious local or systemic infection, bleeding/bruising, scarring/deformity, immediate or delayed allergic reaction, decreased mobility, fusion failure or failure to treat pain, inadvertent neurologic injury resulting in increased pain, weakness/paralysis, or numbness, inadvertent organ injury, allergic reaction, migration or erosion of implant and/or need for repeat surgery, heart attack, stroke, seizure, coma, .? Anesthetic risks were also briefly discussed.? The patient expressed understanding and consent to proceed, agreeing that potential benefits outweigh risk of harm.? All materials required for the procedure were immediately available prior to procedure start.? Site and side were confirmed with the patient, compared carefully to the patient chart and consent, and marked prior to transport to the operating room.? Appropriate time out procedure was performed per protocol prior to procedure start. Description of Procedure PROCEDURE IN DETAIL:? The patient was brought to the operative suite and placed in the supine position.? Appropriate ASA standard monitors were attached. Anesthesia was initiated without difficulty or event. Eyes were protected.? Patient was transitioned to the prone position. Pressure points were padded with joints in neutral position.? Eyes, breasts and genitalia were checked and were free from undue pressure. Skin overlying the procedure site was marked with sterile marker.? Surgical area was prepped then draped in a typical sterile fashion with tinted ChloraPrep ap plicator and allowed to dry for at least 3 minutes.? The left SI joint was identified in the AP fluoroscopic view en face with the posterior wall of the sacrum.? Contralateral oblique view with cephalad angulation was acquired with perfect alignment of the superior S1 endplate. ?Midportion of the targeted SI joint was identified and marked with a sterile skin marker.? After identifying the intended incision site, the area was anesthetized by infiltration with no more than 5ml of a 1:1 admixture of 0.5% bupivacaine with epinephrine and 2% lidocaine with epinephrine via a 27-gauge needle after negative aspiration.? A 22-gauge spinal needle was used to provide additional and adequate local anesthesia by injecting no more than 5 ml of the same local anesthetic mixture at the level of the subcutaneous tissues, gluteal fascia and the periosteum of the sacrum/ilium after negative aspiration.? Using a #15 scalpel blade, a stab incision was mad to allow access with the joint finder.? This was sharply dissected to the joint space. The Nevro1 kit was opened, and the included Stephanie guide pin/joint finder was advanced medial to lateral into the posterior SI joint both by feel and under direct and indirect visualization.? Once seated, appropriate placement, including trajectory and depth, was confirmed in the AP, lateral and contralateral oblique inlet view. A 2-inch incision was then made overlying the surgical site, large enough to accommodate the working channel.? The wound was dissected to gluteal fascia using a combination of sharp and blunt dissection.?Gluteal fascia was then incised and divided revealing the posterior surface of the SI joint. Hemostasis was obtained and confirmed.? An initial dilator was placed over the pin, manually advanced to periosteum and further advanced with a medium surgical mallet past the posterior portion of the SI joint until prongs were advanced into the midportion of the joint, careful not to advance forward past the anterior sacral border or above the sacral prominence, in the lateral view.?The working cannula was advanced over the entire apparatus until prongs were positioned within the joint space just deep to the dilator. ?The appropriate position of the working channel within the SI joint space was confirmed in the AP, contralateral oblique and contralateral oblique inlet views.? Once seated, pin and dilator were carefully removed with a slap hammer, taking care not to retract the working cannula. A drill guide was placed within the working cannula and initial decortication was accomplished with serial advancements of a decortication hand drill with ratcheting handle in the lateral fluoroscopic view, taking care not to advance beyond the anterior extension of the working cannula.? A box chisel was used for final decortication along the entire width of the working cannula. Implant trial was placed within the defect to size the implant.? A 9mm implant was selected and advanced via the implant mixed livestock farm worker into appropriate position through the working cannula and within the joint space. Lateral transfixation anchors were deployed and locked into place.? The mixed livestock farm worker was then released and withdrawn, leaving the implant in perfect final position as confirmed in both the AP and lateral views. The working cannula was withdrawn and hemostasis obtained and confirmed. The wound was then irrigated with copious amounts of Irricept 0.5% chlorhexidine irrigation solution, which was allowed to sit within the surgical site for 1 minute before evacuation.? Hemostasis was confirmed.? Wound was primarily closed in a layered fashion using interrupted 0 vicryl for the fascial layer, interrupted 2-0 undyed vicryl for subcutaneous layers and running 4-0 monocryl for superficial dermal closure.? Wound glue was used to seal the epidermis. The wound was then covered with Telfa and Tegaderm.? The patient was converted to the supine position and transported to the recovery area, having tolerated the procedure well with no evidence of complication. The patient was instructed to utilize a walker when ambulating, maintaining contralateral weightbearing during ambulation for the next 2 weeks.? The patient is to maintain the current dressing and sponge bathe only for 1 week, then can remove the original dressing.? ?Once removing the outer bandage, the patient will cover the incision with clean gauze and paper tape as needed changing daily or when soiled.? The patient understands they should avoid soaking or submerging the incision for 2 weeks and can resume showers after 1 week.? Instructions were provided to the patient in both verbal and written form, which the patient reviewed and signed prior to discharge.? The patient was instructed to watch for signs of infection including fevers, chills, night sweats, new neurologic deficit, increased pain, discharge, bleeding, swelling, opening of or unusual warmth at the incision site.? Patient was instructed to avoid activities that might stress or strain the back, such as heavy lifting, repetitive lifting, reaching, stairs, running, jumping, falls, etc.? They are to call our office or report directly to the Emergency Department immediately should there be any signs/symptoms of complications such as the above or any urgent/emergent changes in their condition. COMMENTS:?None. COMPLICATIONS:?None. DRAINS/PACKING:?None. SPECIMEN:?None. ESTIMATED BLOOD LOSS:?10 mL IV FLUIDS:?On chart. Complications No immediate complications Condition Stable Disposition PACU [facility] Billing Surgery - Charge Forward: Surgery Billing
[2024-06-06] MEDS: LACTATED RINGERS 1,000 ML 30 ML IV CONT ×2 (06:35→09:08)
--- NOTE | 2024-06-06 07:04 | P.PNAN_ITS ---
Anes - Initial Pre Proc Eval Procedure: Operation Date: 06/06/24 07:30 Proposed Procedures p Minimally Invasive Posterior Sacroiliac Joint Instrumented Arthrodesis with Lateral Transfixation (Nevro 1) Under Fluoroscopic Guidance - Willy Thomas MD Date/Time: 06/06/24 07:04 Surgeon: Willy Thomas MD Pre Op Diagnosis: bilateral sacroiliitis, Chronic low back pain Patient Data Age: 33 Gender: F Height: 1.75 m Weight: 140.4 kg Last Vital Signs Temp 36.1 C L 06/06/24 06:10 Pulse 88 06/06/24 06:10 Resp 18 06/06/24 06:10 BP 125/80 06/06/24 06:10 Pulse Ox 97 06/06/24 06:10 O2 Del Method Room Air 06/06/24 06:10 Allergies Allergy/AdvReac Type Severity Reaction Status Date / Time carbamazepine Allergy Intermediate Hives Verified 06/06/24 06:47 Home Medications ?Medication ?Instructions ?Recorded ?Confirmed ?Type hydrocodone 5 mg-acetaminophen 325 1 tablet PO Q4-6H PRN pain 7 days 06/06/24 Rx mg tablet #30 tabs Patient hx anesthesia problems: none Family hx anesthesia problems: none Results Review: All pre-operative results and documents have been reviewed as part of the pre- operative evaluation. [facility] Past Medical History Medical History URI (upper respiratory infection) COVID-19 Vitamin B12 deficiency Vitamin D deficiency Chronic low back pain Lipoma of back Retained placenta Depression Collar bone fracture Surgical History Surgical History History of dilatation and curettage 2010 No significant past surgical history Family History Family History Other No significant family history Social History Social History Years smoked: 19 Smoking status: Former smoker Tobacco type: e-cigarettes/vaping Second hand tobacco smoke exposure: Yes Smoking end date: 09/23/23 Alcohol intake: never Substance use: never Substance use type: does not use Do You Feel Safe in your Home?: Yes Lack of Transportation: No Lack of Food: Never True Current Housing: I Have Housing Concerned About Future Housing: No Difficulty Paying Gas/Electric Bills: No Difficulty Paying for Meds: No Currently Unemployed: No Education: Trade/Vocational Certificate Difficulty w/ Childcare or Family Care: No Living arrangements: with family Occupation/Education: occupation Gender identity (if verbalized by the patient): Female Sexual Orientation (if Verbalized by the Patient): Straight or Heterosexual Spiritual care concerns: No Anes - Eval Final PreProcedure Day of Procedure 06/06/24 07:04 Patient weight: morbidly obese Heart: regular rate and rhythm Lungs: clear to auscultation and normal air movement Airway: Mallampati scale class II and other (upper and lower braces) Neurological: alert and oriented Last oral intake: >/= 8 hours ASA classification: III Emergent: no Anesthetic plan: proceed Anesthesia type and monitoring: general ETT and standard monitoring Results Review: All pre-operative results and documents have been reviewed as part of the pre- operative evaluation. Patient states that she quit smoking last month, was smoking half a ppd. Currently vapes, used this morning. Informed Consent: The patient's anesthetic plan and its attendant risks and benefits were discussed with the patient/family/POA. Questions were solicited and answers provided to the satisfaction of the patient/family/POA.
[2024-06-06] MEDS: SCOPOLAMINE 1 MG PATCH 1 PATCH TRANSDERM (07:20)
[2024-06-06 07:21] LABS: BEDSIDEPREGUCG Negative (Negative)
[2024-06-06] MEDS: ceFAZolin 3 GM/D5W 100 ML 100 ML IVPB (07:32)
[2024-06-06] MEDS: BUPIVACAINE/EPINEPHRINE 0.5% 30 ML VIAL INFILTRATE (08:08)
[2024-06-06] MEDS: LIDOCAINE 2% LOCAL INJ 20 ML VIAL INFILTRATE (08:08)
[2024-06-06] MEDS: fentaNYL CITRATE INJ (*CRX) 100 MCG/2 ML VIAL 25 MCG IV PUSH ×8 (09:28→09:49)
[2024-06-06] MEDS: HYDROmorphone HCL INJ (*CRX) 1 MG/ML SYR 0.5 MG IV PUSH ×4 (09:57→10:45)
[2024-06-06] MEDS: oxyCODONE HCL (*CRX) 5 MG TAB IR PO (10:07)
== END 2024-06-06 11:18 | disposition home or self-care (01) ==
PROVIDERS: PCP Physician Assistant Medical; Visit Provider Anesthesiology Pain Medicine
PROC: (CPT 27279; principal; 2024-06-06 07:30)
DX: M46.1 Sacroiliitis, not elsewhere classified (principal); G89.29 Other chronic pain; Z87.891 Personal history of nicotine dependence; E66.01 Morbid (severe) obesity due to excess calories; Z68.42 Body mass index [BMI] 45.0-49.9, adult
CPT/HCPCS: 27279; 99199; A9270; J0330; J0690; J1100; J1171; J2003; J2004; J2250; J2405; J2704; J3010; J7120

== ENCOUNTER 2024-09-18 10:15 | Outpatient (RCR) | payer OTHER, SELFPAY ==
--- NOTE | 2024-07-19 17:24 | PTOPEVAL1 ---
Assessment and note entered by Iva Dixon, PT Evaluation Information Assessment Status Evaluation Diagnosis M54.5, Chronic pain G89.29, M47.818 spondylosis, Arthrodesis status Z98.1 ICD-10 Condition Codes (PT) Pain in low back M54.50,Pain in left hip M25.552, Abnormalities of gait and mobility R26.9,Weakness R53.1,Encounter for other orthopedic aftercare Z47 .89 Onset 06/06/24 Subjective Information Had L SI fusion 06/06/24 Reports has throbbing in LLE after a long day of being active still present when laying down at night. During the day is not to bad is mainly getting in and out of chairs Still has difficulty bending Sitting still has no pain in the back, just with bending and feels like pulling. Is only taking tylenol. Has not been working since February due to pain. Pt reports since procedure most days feels 70-80% better overall Pt has home TENS unit and reports has been icing still Reported Pain Level Pain Score 3: Self Report Assessment PT Clinical Summary Pt previously known to therapist prior to SI joint fusion. She reports today since procedure approx 6 weeks ago most days she feels 75-80% improved. Pt demonstrates appropriate external rotation bilateral hips, lumbar ROM is reduced due to continued pain though is significantly improved compared to prior to procedure. She also has MRI findings of lumbar spine that are not to be discounted for this discomfort with ROM. She has mild gait deficits related to discomfort, and demonstrates gluteal strength less than functional at this time. Pt will greatly benefit from aquatic therapy in order to improve her postural and gluteal strength for continued improvement of lumbopelvic stability and improve overall independent function with less pain. Plan of Care Interventions Electrical Stimulation,Gait Training,Hot Pack/Cold Pack,Manual Therapy,Neuro Re-education,Patient/ Caregiver Education,Therapeutic Activities, Therapeutic Exercise,Self-Care/Home Management, Other Other Interventions Taping, Aquatic therapy PT Services Indicated Yes Treatment Frequency and 2x weekly x 16 visits Duration These treatments will address the objective and functional deficits as defined above. The patient will be advanced safely and appropriately in order for the patient to progress towards his/her prior level of function. Additional exercises will be introduced and as well as a comprehensive home exercise program upon discharge, if needed, ?to ensure carryover of functional gains achieved in the clinic. This treatment plan has been reviewed and agreement upon by the patient.
--- NOTE | 2024-07-19 17:24 | OPREHPOC ---
Outpatient Therapy Plan of Care This is a Multidisciplinary Plan of Care that may contain components documented by all disciplines (PT, OT, and ST.) PT Problem 1 PT Problem #1 Knowledge Deficit PT Goal 1 Goal / Goal Update Pt will be independent in HEP Pt will verbalize understanding of diagnosis and prognosis Target Visit 10 PT Problem 2 PT Problem #2 Pain PT Goal 1 Goal / Goal Update Pt will report greatest pain level at 6/10 or less to improve ADLs and activities Target Visit 10 PT Goal 2 Goal / Goal Update Pt will report greatest pain level at 3/10 or less to improve ADLs and activities Target Visit 20 PT Problem 3 PT Problem #3 Impaired Gait PT Goal 1 Goal / Goal Update Pt will demonstrate equal stance time R/L LEs and equal step length for 2 minute walk test Target Visit 10 PT Problem 4 PT Problem #4 Impaired Strength PT Goal 1 Goal / Goal Update Pt will demonstrate 3+/5 strength gluteal musculature for improved lumbopelvic stability Target Visit 10 PT Goal 2 Goal / Goal Update Pt will demonstrate 3+/5 strength gluteal musculature for improved lumbopelvic stability Target Visit 20 PT Problem 5 PT Problem #5 Impaired Range of Motion PT Goal 1 Goal / Goal Update Pt will demonstrate seated lumbar ROM full rotation and flexion without pain Target Visit 10 PT Goal 2 Goal / Goal Update Pt will demonstrates full lumbar rotation, lateral flexion, flexion, and 50% lumbar extension without pain in standing.
--- NOTE | 2024-08-22 09:31 | PCPTNOTE ---
Pt canceled due to illness.
--- NOTE | 2024-08-29 11:01 | OPREHPOC ---
Outpatient Therapy Plan of Care This is a Multidisciplinary Plan of Care that may contain components documented by all disciplines (PT, OT, and ST.) PT Problem 1 PT Problem #1 Knowledge Deficit PT Goal 1 Goal / Goal Update Pt will be independent in HEP Pt will verbalize understanding of diagnosis and prognosis 08-29-24 progress met goals continue to progress education Target Visit 17 PT Problem 2 PT Problem #2 Pain PT Goal 1 Goal / Goal Update Pt will report greatest pain level at 6/10 or less to improve ADLs and activities 08-29-24 progress goal not met, 8/10 at worst continue towards goal Target Visit 17 PT Goal 2 Goal / Goal Update Pt will report greatest pain level at 3/10 or less to improve ADLs and activities Target Visit 20 PT Problem 3 PT Problem #3 Impaired Gait PT Goal 1 Goal / Goal Update Pt will demonstrate equal stance time R/L LEs and equal step length for 2 minute walk test 08-29-24 progress goal met NEW GOAL * 2 minute walking test distance of 525' Target Visit 17 PT Problem 4 PT Problem #4 Impaired Strength PT Goal 1 Goal / Goal Update Pt will demonstrate 3+/5 strength gluteal musculature for improved lumbopelvic stability 08-29-24 progress goal met NEW GOAL: * improve gross hip strength to 4/5 bilateral Target Visit 17 PT Goal 2 Goal / Goal Update Pt will demonstrate 3+/5 strength gluteal musculature for improved lumbopelvic stability Target Visit 20 PT Problem 5 PT Problem #5 Impaired Range of Motion PT Goal 1 Goal / Goal Update Pt will demonstrate seated lumbar ROM full rotation and flexion without pain 08-29-24 progress partially met continue towards Target Visit 17 PT Goal 2 Goal / Goal Update Pt will demonstrates full lumbar rotation, lateral flexion, flexion, and 50% lumbar extension without pain in standing. 08-29-24 progress goal not met continue towards Target Visit 17
--- NOTE | 2024-08-29 11:01 | PTOPPROG ---
Assessment and note entered by Vashti Ellsworth, PT Assessment Status Progress Diagnosis M54.5, Chronic pain G89.29, M47.818 spondylosis, Arthrodesis status Z98.1 ICD-10 Condition Codes (PT) Pain in low back M54.50,Pain in left hip M25.552, Abnormalities of gait and mobility R26.9,Weakness R53.1,Encounter for other orthopedic aftercare Z47 .89 Onset 06/06/24 Subjective Information am walking better and pain is less; like the water exercises; to see dr next week; want to continue with therapy. PAIN: constant radicular pain down back of leg to ankle pain range in the past week: 2-8/10 increase pain: bend trunk forward, stairs, lifting, change positions/roll in bed decrease pain: heat, ice, tylenol, home stim with sleeping, awaken 2x/wk due to pain Assessment PT Clinical Summary Domonique has received 7 PT sessions, on land and in the water. Compared to the initial evaluation: pain rating from 3-9/10 to 2-8/10; self assessment Oswestry rating of 48% is same; continues to have constant , radicular pain into L LE to ankle; with palpation, continues to have tenderness over L SIJ ; with sleeping, reports awakening from pain 2x/ week; gait pattern improved with equal step length and good weight shift R/L; 2 minute walking test distance from 310' to 450' with pain same after walking of 2/10; unable to squat with lifting a 5# box with both UE from the floor due to pain; continue to have weakness over trunk and hips, gross strength of 3+/5; education for HEP, body mechanics and pain management. The goals were partially met. Continue PT treatment. Will transition to some land treatments for strengthening and progression of activity level. Plan of Care Interventions Electrical Stimulation,Gait Training,Hot Pack/Cold Pack,Manual Therapy,Neuro Re-education,Patient/ Caregiver Education,Therapeutic Activities, Therapeutic Exercise,Self-Care/Home Management, Other Other Interventions Taping, Aquatic therapy PT Services Indicated Yes Treatment Frequency and 2x/wk for 10 visits Duration These treatments will address the objective and functional deficits as defined above. The patient will be advanced safely and appropriately in order for the patient to progress towards his/her prior level of function. Additional exercises will be introduced and as well as a comprehensive home exercise program upon discharge, if needed, ?to ensure carryover of functional gains achieved in the clinic. This treatment plan has been reviewed and agreement upon by the patient.
--- NOTE | 2024-09-11 10:53 | PCPTNOTE ---
Pt called and cancelled appt this morning due to her child being ill. Will continue POC as able
--- NOTE | 2024-09-27 11:56 | PCPTNOTE ---
Pt NS pool appt today. Pt was called and left message of next appt. on Land in [place] 10/03 at 9.
--- NOTE | 2024-10-03 10:56 | PCPTNOTE ---
Pt called and cancelled today's appt through [employer] [facility] with no reason given.
--- NOTE | 2024-10-19 08:23 | PCPTNOTE ---
Admitting Provider: Attending Provider: Willy Thomas MD Patient:Domonique Benton Date of :1990 Patient has not returned for any further treatments since 09/18/2024, therefore she will be discharged at this time. Patient?s initial visit was on 07/19/2024 14:00 and she had a total of 11 of 19 visits, cancelled 5 visits and no-showed 3 visits including her last reevaluation. She is thus being discharged to nonattendance. The goals have not been met
== END 2024-10-17 23:59 | disposition home or self-care (01) ==
LOC: ANHHIPT 10:15
PROVIDERS: PCP Physician Assistant Medical; Visit Provider Anesthesiology Pain Medicine
DX: M54.50 Low back pain, unspecified (principal); G89.29 Other chronic pain; M47.818 Spondylosis without myelopathy or radiculopathy, sacral and sacrococcygeal region; Z98.1 Arthrodesis status
CPT/HCPCS: 97110; 97113; 97140; 97162; 97530

== ENCOUNTER 2024-11-15 10:35 | Outpatient (CLI) | payer OTHER, SELFPAY ==
--- NOTE | ~2024-11-15 | XR_ITS ---
Lumbosacral Spine: AP, oblique, and lateral views Clinical History: Pain Findings: The normal lordotic curve is maintained. The vertebral bodies and posterior elements are i ntact. The intervertebral disc spaces are preserved. No instability on flexion or extension. There i s moderate facet arthropathy throughout the lumbar spine. The sacroiliac joints are normally outlined . Impression: Moderate facet arthropathy throughout the lumbar spine. Reviewed, dictated and finalized at location M. Impression: Moderate facet arthropathy throughout the lumbar spine.
--- NOTE | ~2024-11-15 | MR_ITS ---
MRI of the lumbar spine Clinical History: Radiculopathy Technique: Axial T2-weighted images, and sagittal T1-weighted, T2-weighted, and T2 fat-sat images wer e acquired. COMPARISON: 03/10/2023 Findings: No acute fracture seen. There is 5 mm retrolisthesis of L5 over S1. No suspicious bone alejandro ow signal abnormality seen. There are mild Modic-type changes about the L4-L5 and L5-S1 disc spaces. At L1-L2 and L2-L3, intervertebral discs maintain normal signal position. There is moderate to advanc ed facet arthropathy results. No spinal canal stenosis or neural foraminal narrowing at these levels. L3-L4, there is mild diffuse disc bulge with advanced facet arthropathy. No central canal stenosis or neural foraminal narrowing. At L4-L5, there is diffuse mild disc bulge with mild facet arthropathy. No central canal stenosis or neural foraminal narrowing. At L5-S1, there is mild disc bulge with mild to moderate facet arthropathy. No central canal stenosis or definite neural foraminal narrowing. Paravertebral soft tissues are unremarkable. Impression: Mild degenerative spondylosis overall, as above. 5 mm retrolisthesis of L5 over S1. Reviewed, dictated and finalized at location . Impression: Mild degenerative spondylosis overall, as above. 5 mm retrolisthesis of L5 over S1.
--- NOTE | ~2024-11-15 | XR_ITS ---
XR sacrum coccyx min 2V Ordering provider: Chago Cool APRN History: . M47.816 - Spondylosis without myelopathy or radiculopathy... . Comparison: None. FINDINGS: BONES: Postoperative changes in the left sacral alar. No acute fracture or dislocation. Degenerative changes of the spine. Bilateral hip mild osteoarthritic changes. JOINTS: The sacroiliac joint spaces are normal. SOFT TISSUES: Soft tissues are normal. IMPRESSION: No acute osseous abnormality sacrum and coccyx. If clinically still suspicious CT is advised. Reviewed, dictated and finalized at location A.
== END 2024-11-15 10:36 | disposition home or self-care (01) ==
PROVIDERS: PCP Nurse Practitioner Adult Health; Visit Provider Nurse Practitioner Adult Health
DX: M47.816 Spondylosis without myelopathy or radiculopathy, lumbar region (principal); M43.17 Spondylolisthesis, lumbosacral region
CPT/HCPCS: 72114; 72148; 72220

== ENCOUNTER 2025-01-23 09:22 | Outpatient (CLI) | payer OTHER, SELFPAY ==
--- NOTE | ~2025-01-23 | CT_ITS ---
EXAMINATION: CT pelvis wo con COMPARISON: None HISTORY: M54.16 - Radiculopathy, lumbar region TECHNIQUE: Axial images were obtained without IV contrast. Sagittal, coronal reconstruction images were obtained from the axial views. CT scan performed using dose optimization techniques including the following automated exposure control; adjustment of mA and/or kV; use of iterative reconstruction technique. Automatic exposure control was used to reduce radiation dose. Permanent radiation dose record is archived to PACS. FINDINGS: Moderate degenerative changes of L5-S1.. Postsurgical changes noted involving the left sacroiliac joint, there is no lucency around the hardware. There is a bridging osteophyte formation or erosion identified. There are no significant degenerative changes of the symphysis pubis of the acetabular femoral joints bilaterally. No fracture or dislocation. No avascular necrosis. No joint effusion is identified. There is a small fat-containing umbilical hernia. IUD noted. Cystic right ovarian lesion measures 4 x 4 cm possible functional cyst, pelvic ultrasound suggested in 6 weeks to assess resolution. The remaining intrapelvic soft tissues appear grossly unremarkable. There is no subcutaneous fluid collection or intramuscular hematoma identified. IMPRESSION: Postsurgical and degenerative changes detailed above. Incidental findings above. Reviewed, dictated and finalized at location A. IMPRESSION: Postsurgical and degenerative changes detailed above. Incidental fi ndings above.
--- OUTSIDE RECORDS SUMMARY | 2025-01-23 10:39 | XMS_ITS | Clinical Summary ---
Author Organization [facility] Address [address] [place] [address] Care Team Providers Care Sports Anchor Name Role Phone Cindy Verma Primary Care Provider [phone] Source Comments [facility],non[facility] Affiliates and Associated Physician Practices is amultiple site organization consisting of ambulatory clinics and hospital sitesin [place], [place], [place] and [place]. This disclosure is being madepursuant to the Care Everywhere program and may not contain all information available regarding this patient. Last updated 18.[facility] Prepmatic Allergies Active Allergy Reactions Criticality Noted Date Comments Carbamazepine Rash,Fever Medium 06/06/2020 Medications * Be aware that medications may not be up to date on this document. Alwaysverify current medications with the patient. Acetaminophen (TYLENOL PO) Take 1,000 mg by mouth Active vitamin D, ergocalciferol, (Drisdol) 1.25 MG (40893 UT) capsuleIndicati ons:Vitamin D Deficiency Take 1 (one) capsule by mouth every 7 days (once a week) Reasons: Vitamin D Deficiency 4 capsule 3 5 Active furosemide (Lasix) 20 MG tablet Take 1 (one) tablet by mouth once daily as needed 5 Active levothyroxine (Synthroid) 88 MCG tablet Take 1 (one) tablet by mouth once daily 5 Active pregabalin (Lyrica) 75 MG capsule Take 1 (one) capsule by mouth 2 times daily 5 Active Active Problems Problem Noted Date Diagnosed [...] Acute low back pain 08/11/2016 Anxiety 02/21/2016 Encounters Date Type Department Care Team Description 12/26/2024 10:30 AM CDT Office Visit [facility] Weight Management Services [address] [place] [phone] Jennifer Valenzuela APRN-CNP History of nicotine use (Primary Dx); Morbid obesity (HCC); Abnormal EKG; Vitamin D deficiency; Abnormal TSH 12/26/2024 10:00 AM CDT Office Visit [facility] [address] [place] [phone] Morbid obesity (HCC) (Primar y Dx) 12/14/2024 Orders Only [facility] Health Weight Management Services [address] [place] [phone] Jayne Read APRN-CNP History of nicotine use; Pre-op testing 12/12/2024 Telephone [facility] [address] [place] [phone] Blaire Daigle MD Appointment 12/01/2024 10:30 AM CDT - 12/01/2024 10:56 AM CDT Surgery [facility] [address] [place] [address] Blaire Daigle MD ESOPHAGOGASTRODUODENOSCOPY WITH BIOPSY 12/01/2024 10:26 AM CDT Anesthesia Event [facility] [address] [place] [address] Yovani Cheema MD 12/01/2024 9:51 AM CDT - 12/01/2024 11:41 AM CDT Hospital Encounter [facility] - [facility] [address] [place] [address] Blaire Daigle MD Surgery General Discharge Disposition: Home or Self Care 11/30/2024 Travel 11/29/2024 3:00 PM CDT Video Visit [facility] [address] [place] [phone] Jayne Read APRN-CNP Morbid obesity due to excess calories (HCC) ; Abnormal EKG; Vitamin D deficiency; History of nicotine use; Pre-op testing 11/17/2024 3:00 PM CDT Office Visit [facility] [address] [place] [phone] Morbid obesity (HCC) (Primar y Dx) 11/13/2024 Telephone [facility] [address] [place] [phone] Blaire Daigle MD Procedure Prior Auth Request (EGD) 11/09/2024 Orders Only [facility] [address] [place] [phone] Jayne Read APRN-CNP History of nicotine use; Pre-op testing 11/04/2024 Orders Only [facility] Weight Management [facility] [address] [place] [phone] Donna Andres APRN-CNP Morbid obesity (HCC); Pre-op evaluation; Vitamin D deficiency 10/27/2024 9:00 AM CDT Video Visit [facility] Weight Management Services [address] [place] [phone] Morbid obesity (HCC) 10/25/2024 9:00 AM CDT Office Visit [facility] Weight Management [facility] [address] [place] [phone] Jayne Read APRN-CRYSTAL Morbid obesity due to excess calories (HCC) (Primary Dx); Abnormal EKG; Vitamin D deficiency; History of nicotine use; Pre-op testing from Last 3 Months Family History Medical History Relation Name Comments Diabetes; unknown type Brother Sleep Disorder - Sleep apnea Brother Hypertension Maternal Grandfather Diabetes; unknown type Mother Sleep Disorder - Sleep apnea Mother Asthma Sister Relation Name Status Comments Brother Maternal Grandfather Mother Sister Social History Tobacco Use Types Packs/Day Years Used Date Smoking Tobacco: Former Cigarettes 0.3 2.4 0 11/2021 - 04/2024 Smokeless Tobacco: Never Tobacco Cessation:Counseling Given: Not Answered Comments:1-2 daily Alcohol Use Standard Drinks/Week Comments Yes 0 (1 standard drink = 0.6 oz pur e alcohol) rare AUDIT-C Answer Date Recorded Q1: How often do you have a drink containing alcohol? Never 12/01/2024 Q2: How many drinks containi ng alcohol do you have on a typical day when you are drinking? Patient does not drink Q3: How often do you have si x or more drinks on one occasion? Never 12/01/2024 PHQ-2 Answer Date Recorded Patient Health Questionnaire-2 Score 0 12/26/2024 Comments No Sex and Gender Information Value Date Recorded Sex Assigned at Not on file Legal Sex Female 2:11 PM [employer]GEM[employer] HEL[employer] Gender Identity Not on file Sexual Orientation Not on file Last Filed Vital Signs Vital Sign Reading Time Taken Comments Blood Pressure 119/80 12/01/2024 11:30 AM CDT Pulse 71 12/01/2024 11:30 AM CDT Temperature 36.5 C (97.7 F) 12/01/2024 11:10 AM CDT Respiratory Rate 16 12/01/2024 11:3 0 AM CDT Oxygen Saturation 99% 12/01/2024 11: 30 AM CDT Inhaled Oxygen Concentration - - Weight 150.5 kg (331 lb 12.8 oz) 2024 10:13 AM CDT Height 175.3 cm (5' 9) 12/26/2024 10:1 3 AM CDT Body Mass Index 49 12/26/2024 10:13 AM CDT Plan of Treatment Upcoming Encounters Date Type Department Care Team (Sarika st Contact Info) Description 01/24/2025 9:30 AM CDT Office Visit [facility] Health Weight Management Services [address] [place] [phone] 01/24/2025 10:00 AM CDT Office Visit [facility] Weight Management Services [address] [place] [phone] Jennifer Valenzuela, MEDICAL TECHNOLOGIST CHEMISTRY-DEMAND PLANNING MANAGER [address] [place] [phone] Health Maintenance Due Date Last Done Comments HIV SCREENING 12/05/2006 HEPATITIS C SCREENING 12/01/2009 DTAP/TDAP/TD VACCINES (1 - Tdap) 12/05/2010 HEPATITIS B VACCINE (1 of 3 - 19+ 3-dose series) 12/05/2010 PAP SMEAR 12/05/2012 HPV VACCINE (1 - 3-dose SCDM series) 12/05/2018 COVID-19 VACCINE (3 - 2024-2 6 season) 2025 02/18/2021, 01/06/2021 INFLUENZA VACCINE (#1) 2025 , 02/02/2019, 05/25/2013 ZOSTER VACCINE (1 of 2) 12/05/2041 HIB VACCINE Aged Out No longer eligi ble based on patient's age to complete this topic MENINGOCOCCAL (Group B) VACCINE SHARED DECISION-MAKING Aged Out No longer eligible based on patient's age to complete this topic MENINGOCOCCAL GROUPS A/C/Y/W VACCINE Aged Out No longer eligible b ased on patient's age to complete this topic PNEUMOCOCCAL VACCINE Aged Out No long er eligible based on patient's age to complete this topic Procedures Procedure Name Priority Date/Time Associated Diagnosis Comments NICOTINE + METABOLITES BLOOD Routine 12/07/2024 History of nicotine use Pre-op testing CARDIAC RHYTHM STRIP ORDER 12/04/2024 2:17 PM CDT GROSS + MICRO EXAM (ILL) Routine 12/01/2024 10:40 AM CDT Encounter for screening for upper gastrointestinal disorder MO EGD FLEX TRANSORAL W BX SNGL OR MULT 12/01/2024 10:21 AM CDT Encounter for screening for upper gastrointestinal disorder Special Needs ARRIVAL TIME:1200 HCG URINE QUALITATIVE Pre-Op 12/01/2024 10:00 AM CDT Pre-op testing NICOTINE + METABOLITES BLOOD Routine 11/06/2024 History of nicotine use Pre-op testing from Last 3 Months Results * NICOTINE + METABOLITES BLOOD (12/07/2024) Only the most recent of2 resultswithin the time period is included. Blood BLOOD SPECIMEN / Unknown 12/07/2024 us Jayne Read APRN-DEMAND PLANNING MANAGER LAB - CHEMISTRY ORDERABLES F inal Result OTHER LAB * CARDIAC RHYTHM STRIP ORDER (12/04/2024 2:17 PM CDT) Narrative 12/04/2024 2:17 PM CDT Ordered by an unspecified provider. us Scanned Document CARDIAC SERVICES ORDERABLES Fin al Result * GROSS + MICRO EXAM (ILL) (12/01/2024 10:40 AM CDT) Case Report Surgical Pathology Report Case: [id number] Authorizing Provider: Blaire Daigle MD Collected: 12/01/2024 10:40 AM Ordering Location: [facility] Received: 12/01/2024 02:17 PM [facility] Pathologist: Antwan Peralta MD Specimen: Gastric Biopsy, Antrum biopsy R/O H Pylori 12/04/2024 8:32 AM CDT [facility] Final Diagnosis A. Stomach, antrum, biopsy: - Antral mucosa with no significant histopathologic abnormality - No Helicobacter pylori organisms identified (on H&E) 12/04/2024 8:32 AM CDT [facility] at 0832 CDT Microscopic Description and Comment Microscopic examination is performed and substantiates the above diagnosis. Fragments of histologically unremarkable antral mucosa. 12/04/2024 8:32 AM T [facility] Clinical History Encounter for screening for upper GI disorder. Biopsy of normal antrum to rule out H.pylori. 12/04/2024 8:32 AM T [facility] Gross Description A. The requisition and specimen(s) are identified with the patient's name (Domonique Ortega), MRN, and . Received in formalin labeled antrum biopsy R/O H pylori, are 2 simons-pink soft tissue fragments, 0.3 and 0.5 cm in greatest dimension. The specimen is submitted in toto in cassette A1. AW 12/04/2024 8:32 AM T [facility] Pathologist Location at [facility] 12/04/2024 8:32 AM T [facility] Disclaimer The performance characteristics of all immunohistochemical and indirect immunofluorescence stains (if any) cited in this report were determined by the [facility] of [facility]. Some of these tests were developed by [...] H&E slides and special stains prepared at [facility], [place]. [address] (CLIA# [id number]) unless otherwise specified. This case was interpreted by the [facility] Department of Pathology. When applicable, select reference laboratory testing is performed at the [facility], [address] [place] [id number]. 12/04/2024 8:32 AM T [facility] Embedded Images 12/04/2024 8:32 AM T [facility] Pathology/Cytology GASTRIC BIOPSY SPECIMEN / Unknown 12/01/2024 10:40 AM CDT 12/01/2024 2:17 PM CDT Comment:Pre-op diagnosis: Encounter for screening for upper gastrointestinal disorder [Z13.810] Blaire Daigle MD LAB - PATHOLOGY/CYTOLOGY ORDERABLES Final Result Performing Organization Address [facility] Co de Phone Number [facility] [address] * HCG URINE QUALITATIVE (12/01/2024 10:00 AM CDT) hCG Qualitative Urine Negative Negative 12/01/2024 10:10 AM CDT [facility] Specific [place] UA 1.010 1.005 - 1.030 12/01/2024 10:10 AM CDT [facility] Urine URINE / Unknown Collection / Unknown 12/01/2024 10:00 AM CDT 12/01/2024 10:04 AM CDT Yovani Cheema MD LAB - URINALYSIS ORDERABLES Fi nal Result Performing Organization Address [facility] Co de Phone Number [facility] [address] from Last 3 Months Insurance AETNA AETNA AETNA AETNA Care Teams Sports Anchor Relationship Specialty Start Date End Date Cindy Verma PA [address] [place] [phone] PCP - General Physician Scallop Binder 09/19/24
== END 2025-01-23 09:23 | disposition home or self-care (01) ==
PROVIDERS: PCP Physician Assistant Medical; Visit Provider Anesthesiology Pain Medicine
DX: M54.16 Radiculopathy, lumbar region (principal); Z98.1 Arthrodesis status; M46.1 Sacroiliitis, not elsewhere classified
CPT/HCPCS: 72192